=== PATIENT | male | born 1965 | race Caucasian/White ===

== ENCOUNTER 2018-03-31 23:00 | Emergency (ER) | payer MEDICAID ==
[~2018-03-31] VITALS: Ht 154.9 cm; Wt 95.0 kg
[2018-03-31 23:35] VITALS: BP 108/67
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
[2018-04-01] MEDS ORDERED: ZIPRASIDONE 20MG CAPSULE PO SCH
[2018-04-01] MEDS ORDERED: ZIPRASIDONE 20MG CAPSULE ONE (00:02)
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
--- NOTE | 2018-04-01 00:57 | NUR ---
PT RESISTANT TO DISCHARGE, PT GIVEN OUTPATIENT RESOURCE INFORMATION, ENCOURAGED TO FOLLOW UP, PT AGITATED WITH STAFF REGARDING DISCHARGE. PT ADMITS HE WAS RECENTLY SEEN AND DC'D FROM [place] FOR THE SAME THING. PT AGAIN EDUCATED ON POC (DC WITH OUTPATIENT FOLLOW UP) PT DEMANDING RN TO CALL N[facility], PT ALSO EDUCATED THAT THEY DOUBTLY HAVE ROOMS AVAILABLE AT THIS TIME, AND THE ERMD HAS CLEARED PT MEDICALLY FOR OUTPATIENT TREATMENT.
--- NOTE | 2018-04-01 01:23 | NUR ---
[facility] PT REQUESTED RN TAXI HIM OVER THERE. PER [facility] PT WILL BE REDIRECTED BACK TO OUR FACILITY OR TO THE [facility] IF SENT TO THEM. PT TO BE TELEPSYCHED AT THIS TIME DUE TO LACK OF RESOURCES FOR PT
--- NOTE | 2018-04-01 02:48 | NUR ---
PT IN ROOM DRAWING, CALM, COOPERATIVE, AWAITING TELEPSYCH CONSULT, MONITOR IN ROOM
--- NOTE | 2018-04-01 03:06 | NUR ---
TELEPSYCH CONSULT IN PROGRESS
--- NOTE | 2018-04-01 03:32 | NUR ---
AWAITING TELEPSYCH TO CALL MD FOR DISPO RECOMMENDATION
--- NOTE | 2018-04-01 03:42 | NUR ---
TELEPSYCH CONSULT RECIEVED VIA FAX, PT CLEARED TO BE DISCHARGED FOR OUTPATIENT FOLLOW UP. PT ANGRY WITH STAFF. PT HAS ALL BELONGINGS HE COME WITH, REFUSING CAB VOUCHER AFTER MULTIPLE ATTEMPTS TO GIVE HIM A SAFE RIDE HOME. PT ALERT AND ORIENTED X4
== END 2018-04-01 03:48 | disposition home or self-care (01) ==
LOC: ED 04-01 03:42
DX: F20.0 Paranoid schizophrenia (principal); F17.200 Nicotine dependence, unspecified, uncomplicated; F10.129 Alcohol abuse with intoxication, unspecified
CPT/HCPCS: 99284

== ENCOUNTER 2018-05-22 04:38 | Emergency (ER) | payer MEDICAID ==
[~2018-05-22] VITALS: Ht 188 cm; Wt 82.0 kg
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
[2018-05-22] MEDS ORDERED: BUPR75TA6 PO (04:56)
[2018-05-22] MEDS ORDERED: FLUO10CA7 PO (04:56)
[2018-05-22] MEDS ORDERED: OLAN2.5T10 PO (04:56)
--- NOTE | 2018-05-22 05:07 | NUR ---
DISCUSSED NEED FOR URINE SAMPLE AND PROVIDED PT WITH URINE CUP, PT STATED HE IS ABLE TO PROVIDED URINE SAMPLE AT THIS TIME.
[2018-05-22 05:17] LABS: BASOPHILS # (AUTO) 0.06 x10^3/uL (0-0.1); BASOPHILS % (AUTO) 1 % (0-1); EOSINOPHILS # (AUTO) 0.69 x10^3/uL (0-0.4); EOSINOPHILS % (AUTO) 9 % (1-7); LYMPHOCYTES # (AUTO) 2.84 x10^3/uL (1-3.4); LYMPHOCYTES % (AUTO) 36 % (22-44); MD NO; MEAN CORPUSCULAR HEMOGLOBIN 33.5 pg (27.5-34.5); MEAN CORPUSCULAR HGB CONC 34.3 g/dL (33.2-36.2); MEAN CORPUSCULAR VOLUME 97.7 fL (81-97); MEAN PLATELET VOLUME 8.3 fL (7.4-10.4); MONOCYTES # (AUTO) 0.85 x10^3/uL (0.2-0.8); MONOCYTES % (AUTO) 11 % (2-9); NEUTROPHILS # (AUTO) 3.43 x10^3/uL (1.8-6.8); NEUTROPHILS % (AUTO) 44 % (42-75); PLATELET COUNT 250 x10^3/uL (130-400); RED CELL DISTRIBUTION WIDTH 13.5 % (9.4-14.8)
[2018-05-22 05:29] LABS: ALBUMIN 3.4 g/dL (3.4-5.0); ANION GAP 6 mmol/L (5-15); CALCIUM 8.3 mg/dL (8.5-10.1); CHLORIDE 110 mmol/L (98-107); CREATININE 0.87 mg/dL (0.7-1.3); SALICYLATE LEVEL 2.6 mg/dL (2.8-20.0)
[2018-05-22 05:36] LABS: ACETAMINOPHEN < 2 mcg/mL (10-30)
--- NOTE | 2018-05-22 06:03 | NUR ---
PT RESTING WITH EYES CLOSED, STATED HE IS UNABLE TO PROVIDE URINE SAMPLE NOW, ROOM REMAINS SECURED, SITTER AT DOORWAY FOR CONTINOUS MONITORING.
--- NOTE | 2018-05-22 06:20 | NUR ---
URINE SAMPLE TAKEN TO LAB
[2018-05-22 06:39] LABS: AMPHETAMINE SCREEN, URINE Positive (Negative); BARBITURATE SCREEN, URINE Negative (Negative); BENZODIAZEPINE SCREEN, URINE Negative (Negative); CANNABINOID SCREEN, URINE Positive (Negative); COCAINE SCREEN, URINE Negative (Negative); METHADONE SCREEN, URINE Negative (Negative); OPIATE SCREEN, URINE Negative (Negative)
--- NOTE | 2018-05-22 07:04 | NUR ---
REPORT GIVEN TO JOSE SINCLAIR
--- NOTE | 2018-05-22 07:22 | NUR ---
BEDSIDE REPORT FROM VICTOR HUGO RN, PT SLEEPING IN BED WITH SITTER AT BEDSIDE. AWAITING [facility] EVAL.
--- NOTE | 2018-05-22 08:22 | NUR ---
[facility] called they will dispatch someone now.
[2018-05-22 09:05] VITALS: BP 136/72
--- NOTE | 2018-05-22 10:04 | NUR ---
PT DISCHARGED TO [facility], ALL BELONGINGS RETURNED TO PT, MEDICATIONS HELD IN PHARMACY RETURNED TO PATIENT. TAXI VOUCHER GIVEN. NO ADDITIONAL QUESTIONS FROM PT.
== END 2018-05-22 10:09 | disposition home or self-care (01) ==
LOC: ED 07:02
DX: R45.851 Suicidal ideations (principal); F32.9 Major depressive disorder, single episode, unspecified; F20.9 Schizophrenia, unspecified; F43.10 Post-traumatic stress disorder, unspecified; Z59.0 Homelessness; Z91.14 Patient's other noncompliance with medication regimen
CPT/HCPCS: 36415; 80048; 80307; 80329; 82040; 85025; 99284; G0480

== ENCOUNTER 2018-07-17 04:01 | Emergency (ER) | payer MEDICAID ==
[~2018-07-17] VITALS: Ht 177.8 cm; Wt 68.0 kg
[~2018-07-17 04:01] MED LIST: BUPR75TA6 PO; FLUO10CA7 PO; OLAN2.5T10 PO
[2018-07-17 04:09] VITALS: BP 128/73
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
[2018-07-17 04:34] LABS: BASOPHILS # (AUTO) 0.05 x10^3/uL (0-0.1); BASOPHILS % (AUTO) 1 % (0-1); EOSINOPHILS # (AUTO) 0.82 x10^3/uL (0-0.4); EOSINOPHILS % (AUTO) 9 % (1-7); LYMPHOCYTES # (AUTO) 3.25 x10^3/uL (1-3.4); LYMPHOCYTES % (AUTO) 34 % (22-44); MD NO; MEAN CORPUSCULAR HEMOGLOBIN 33.7 pg (27.5-34.5); MEAN CORPUSCULAR VOLUME 99.2 fL (81-97); MEAN PLATELET VOLUME 7.5 fL (7.4-10.4); MONOCYTES # (AUTO) 0.79 x10^3/uL (0.2-0.8); MONOCYTES % (AUTO) 8 % (2-9); NEUTROPHILS # (AUTO) 4.76 x10^3/uL (1.8-6.8); NEUTROPHILS % (AUTO) 49 % (42-75); PLATELET COUNT 304 x10^3/uL (130-400); RED BLOOD COUNT 3.93 x10^6/uL (4.38-5.82); RED CELL DISTRIBUTION WIDTH 14.7 % (9.4-14.8)
[2018-07-17 04:46] LABS: ALANINE AMINOTRANSFERASE 20 U/L (12-78); ALBUMIN 3.8 g/dL (3.4-5.0); ANION GAP 6 mmol/L (5-15); CALCIUM 8.8 mg/dL (8.5-10.1); CHLORIDE 105 mmol/L (98-107); CREATININE 1.22 mg/dL (0.7-1.3)
[2018-07-17 04:53] LABS: ALKALINE PHOSPHATASE 94 U/L (45-117); BILIRUBIN,TOTAL 0.4 mg/dL (0.2-1.0); TOTAL PROTEIN 7.1 g/dL (6.4-8.2)
[2018-07-17 04:54] LABS: ACETAMINOPHEN < 2 mcg/mL (10-30)
--- NOTE | 2018-07-17 05:15 | NUR ---
PT SLEEPING COMFORTABLY ON GURNEY. RR EVEN AND UNLABORED. NADN.
--- NOTE | 2018-07-17 05:42 | NUR ---
[facility] CALLED, WAITING FOR RESPONSE.
--- NOTE | 2018-07-17 05:46 | NUR ---
PT ADMITTED TO THIS RN DURING TRIAGE THAT THE [facility] WAS FULL, [place] WOULDNT ACCEPT HIM BECAUSE THEY WERE FULL, AND SO HE CALLED 911. PT ASKED FOR BLANKETS AND FOR THE LIGHTS TO BE TURNED OUT DURING REPORT W/ [facility].
--- NOTE | 2018-07-17 05:59 | NUR ---
PT STATES STILL UNABLE TO PROVIDE UA.
--- NOTE | 2018-07-17 06:20 | NUR ---
THIS RN SPOKE TO [facility]. INFORMED OF REFUSAL BY PT TO PROVIDE UA. I REP STATES SHE WILL CALL BACK. I REP STATES IT IS AN INTEGRAL PIECE OF INFORMATION BEFORE THEY CAN SEND SOMEONE TO ASSESS PT.
--- NOTE | 2018-07-17 06:58 | NUR ---
PT REPORT TO KARISSA GARCIA.
--- NOTE | 2018-07-17 07:01 | NUR ---
RECEIVED REPORT FROM RADHA BROWN RN. PT SLEEPING ON GURNEY. PER RADHA RN PT REFUSED TO PROVIDE UA SAMPLE. SITTER AWARE FOR NEED FOR UA. URINAL PROVIDED TO SITTER WHEN PT NEEDS TO USE RESTROOM.
--- NOTE | 2018-07-17 07:14 | NUR ---
PT REFUSING TO PROVIDE UA SAMPLE.
[2018-07-17 07:40] LABS: AMPHETAMINE SCREEN, URINE Positive (Negative); BARBITURATE SCREEN, URINE Negative (Negative); BENZODIAZEPINE SCREEN, URINE Negative (Negative); CANNABINOID SCREEN, URINE Positive (Negative); COCAINE SCREEN, URINE Negative (Negative); METHADONE SCREEN, URINE Negative (Negative); OPIATE SCREEN, URINE Negative (Negative)
--- NOTE | 2018-07-17 08:30 | NUR ---
PT PROVIDED W/ SI BREAKFAST MEAL TRAY. PT RESTING ON [place]. AILEEN. SITTER REMAINS AT BEDSIDE. ROOM REMAINS SECURE.
--- NOTE | 2018-07-17 09:56 | NUR ---
[facility] AT BEDSIDE.
--- NOTE | 2018-07-17 10:41 | NUR ---
PT ESCORTED OFF THE PREMISES BY SECURITY. ALL PERSONAL BELONGINGS BOTH IN LOCKER AND SECURITY RETURNED.
== END 2018-07-17 10:44 | disposition home or self-care (01) ==
LOC: ED 04:58
DX: F20.9 Schizophrenia, unspecified (principal); R45.851 Suicidal ideations
CPT/HCPCS: 36415; 80053; 80307; 80329; 85025; 99284; G0480

== ENCOUNTER 2018-07-19 23:22 | Emergency (ER) | payer MEDICAID ==
[~2018-07-19] VITALS: Ht 188 cm; Wt 82.0 kg
--- NOTE | 2018-07-19 23:30 | NUR ---
SUJATHA. REPORT RECEIVED FROM EMS. PT WAS FOUND AT PARKING GARAGE AT [facility]. PT IS SI. PT TRIED TO JUMP OFF FROM PARKING GARAGE. NO HI. PT'S AOX4. RESPS EVEN AND UNLABORED.
--- NOTE | 2018-07-20 | NUR ---
CALLED [facility] TO COME SEE THE PT
--- NOTE | 2018-07-20 00:19 | NUR ---
BELONGINGS PUT INTO 2 BAGS AND PUT INTO LOCKER. ROOM SECURE.
[2018-07-20 00:33] LABS: MD YES; MEAN CORPUSCULAR HEMOGLOBIN 33.7 pg (27.5-34.5); MEAN CORPUSCULAR HGB CONC 33.9 g/dL (33.2-36.2); MEAN CORPUSCULAR VOLUME 99.3 fL (81-97); MEAN PLATELET VOLUME 7.7 fL (7.4-10.4); PLATELET COUNT 298 x10^3/uL (130-400); RED BLOOD COUNT 3.76 x10^6/uL (4.38-5.82); RED CELL DISTRIBUTION WIDTH 14.6 % (9.4-14.8)
[2018-07-20 00:37] LABS: ALANINE AMINOTRANSFERASE 18 U/L (12-78); ALBUMIN 3.5 g/dL (3.4-5.0); ANION GAP 8 mmol/L (5-15); CALCIUM 8.1 mg/dL (8.5-10.1); CHLORIDE 111 mmol/L (98-107); CREATININE 1.04 mg/dL (0.7-1.3); SALICYLATE LEVEL 2.7 mg/dL (2.8-20.0)
[2018-07-20 00:39] LABS: ACETAMINOPHEN < 2 mcg/mL (10-30); ALKALINE PHOSPHATASE 88 U/L (45-117); BILIRUBIN,TOTAL < 0.1 mg/dL (0.2-1.0); TOTAL PROTEIN 6.8 g/dL (6.4-8.2)
[2018-07-20 00:42] LABS: BASOPHILS # (AUTO) 0.04 x10^3/uL (0-0.1); BASOPHILS % (AUTO) 1 % (0-1); EOSINOPHILS # (AUTO) 0.69 x10^3/uL (0-0.4); EOSINOPHILS % (AUTO) 9 % (1-7); LYMPHOCYTES # (AUTO) 3.26 x10^3/uL (1-3.4); LYMPHOCYTES % (AUTO) 44 % (22-44); MONOCYTES # (AUTO) 0.53 x10^3/uL (0.2-0.8); MONOCYTES % (AUTO) 7 % (2-9); NEUTROPHILS # (AUTO) 2.94 x10^3/uL (1.8-6.8); NEUTROPHILS % (AUTO) 39 % (42-75)
--- NOTE | 2018-07-20 00:44 | NUR ---
PT SLEEPING IN GURNEY. RESPS EVEN AND UNLABORED. URINAL AT BEDSIDE.
[2018-07-20 01:41] LABS: EOS#(MANUAL) 0.53 x10^3/uL (0.0-0.4); EOS% (MANUAL) 7 % (1-7); LYMPH#(MANUAL) 3.12 x10^3/uL (1-3.4); LYMPHS% (MANUAL) 41 % (22-44); MONOS#(MANUAL) 0.76 x10^3/uL (0.3-2.7); MONOS% (MANUAL) 10 % (2-9); SEG#(MANUAL) 3.19 x10^3/uL (1.8-6.8); SEGS% (MANUAL) 42 % (42-75)
[2018-07-20 01:42] LABS: <PLATELET ESTIMATE> ADEQUATE; <PLT MORPHOLOGY> NORMAL PLT MORPH; <RBC MORPHOLOGY> NORMAL
--- NOTE | 2018-07-20 01:48 | NUR ---
PT SLEEPING IN GURNEY STILL. RESPS EVEN AND UNLABORED. PT IS NOT ABLE TO PROVIDE URINE SAMPLE AT THIS TIME.
--- NOTE | 2018-07-20 02:39 | NUR ---
Break RN: Breathalyzer 0.05, [facility] police booking officer at bedside.
[2018-07-20 03:15] VITALS: BP 107/64
--- NOTE | 2018-07-20 03:18 | NUR ---
THIS RN TOOK VS FOR PT. THEN, PT AGITATED AND VERBALLY AGGRESSIVE TOWARD THIS RN. DC UP. SECURITY PAGED.
--- NOTE | 2018-07-20 03:28 | NUR ---
PT GIVEN DC INSTRUCTIONS. PT'S AOX4. RESPS EVEN AND UNLABORED. PT AMB TO DC WITH SECURITY. NO ACUTE DISTRESS AT DC.
== END 2018-07-20 03:29 | disposition home or self-care (01) ==
LOC: ED 07-20 01:14
DX: R45.851 Suicidal ideations (principal); Z72.9 Problem related to lifestyle, unspecified; F10.10 Alcohol abuse, uncomplicated; F20.9 Schizophrenia, unspecified
CPT/HCPCS: 36415; 80053; 80307; 80329; 85025; 99284; G0480

== ENCOUNTER 2018-07-30 15:00 | Inpatient (IN) | payer MEDICAID ==
[~2018-07-30] VITALS: Ht 175.3 cm; Wt 94.4 kg
--- NOTE | 2018-07-30 15:18 | NUR ---
ALL PT'S BELONGINGS STORED IN LOCKER, 1 BAG, PT IN GOWN, REQUESTED TO PROVIDE URINE SAMPLE, SITTER AT DOORWAY, AWAITING MD EVALUATION.
[2018-07-30] MEDS ORDERED: LORazepam 1MG TABLET ONE (15:25)
[2018-07-30] MEDS ORDERED: LORazepam 1MG TABLET PO ONE (15:30)
[2018-07-30 15:41] LABS: BASOPHILS # (AUTO) 0.04 x10^3/uL (0-0.1); BASOPHILS % (AUTO) 1 % (0-1); EOSINOPHILS # (AUTO) 0.37 x10^3/uL (0-0.4); EOSINOPHILS % (AUTO) 5 % (1-7); LYMPHOCYTES # (AUTO) 2.37 x10^3/uL (1-3.4); LYMPHOCYTES % (AUTO) 33 % (22-44); MD NO; MEAN CORPUSCULAR HEMOGLOBIN 32.8 pg (27.5-34.5); MEAN CORPUSCULAR HGB CONC 33.3 g/dL (33.2-36.2); MEAN CORPUSCULAR VOLUME 98.3 fL (81-97); MEAN PLATELET VOLUME 8.1 fL (7.4-10.4); MONOCYTES # (AUTO) 0.82 x10^3/uL (0.2-0.8); MONOCYTES % (AUTO) 11 % (2-9); NEUTROPHILS # (AUTO) 3.68 x10^3/uL (1.8-6.8); NEUTROPHILS % (AUTO) 51 % (42-75); PLATELET COUNT 339 x10^3/uL (130-400); RED BLOOD COUNT 4.21 x10^6/uL (4.38-5.82); RED CELL DISTRIBUTION WIDTH 14.8 % (9.4-14.8)
[2018-07-30 15:51] LABS: ALANINE AMINOTRANSFERASE 22 U/L (12-78); ANION GAP 6 mmol/L (5-15); CALCIUM 9.2 mg/dL (8.5-10.1); CHLORIDE 108 mmol/L (98-107); CREATININE 1.22 mg/dL (0.7-1.3); SALICYLATE LEVEL 1.8 mg/dL (2.8-20.0)
[2018-07-30 15:53] LABS: ALKALINE PHOSPHATASE 93 U/L (45-117); BILIRUBIN,TOTAL 0.4 mg/dL (0.2-1.0); TOTAL PROTEIN 7.4 g/dL (6.4-8.2)
[2018-07-30 15:54] LABS: ACETAMINOPHEN < 2 mcg/mL (10-30)
--- NOTE | 2018-07-30 16:00 | NUR ---
PT IN BED, NAD, REQUESTING FOOD, RN TO ORDER TRAY, SITTER AT DOORWAY, AWAITING DISPO, WCTM.
[2018-07-30 16:42] LABS: AMPHETAMINE SCREEN, URINE Positive (Negative); BARBITURATE SCREEN, URINE Negative (Negative); BENZODIAZEPINE SCREEN, URINE Positive (Negative); CANNABINOID SCREEN, URINE Positive (Negative); COCAINE SCREEN, URINE Negative (Negative); METHADONE SCREEN, URINE Negative (Negative); OPIATE SCREEN, URINE Negative (Negative)
--- NOTE | 2018-07-30 17:00 | NUR ---
PT IN BED, NAD, MEAL TRAY DELIVERED, SITTER AT DOORWAY, AWAITING PSYCH EVAL, WCTM.
--- NOTE | 2018-07-30 17:25 | NUR ---
[facility] CALLED FOR ASSESSMENT. LEFT MESSAGE
[2018-07-30] MEDS ORDERED: KETOROLAC 30 MG/1 ML IV PRN (17:30)
[2018-07-30] MEDS ORDERED: MORPHINE SULFATE 4 MG/ML, 1ML IVPush PRN (17:30)
[2018-07-30] MEDS ORDERED: LORazepam 2 MG/ML, 1ML IV PRN ×4 (17:30)
[2018-07-30] MEDS ORDERED: LORazepam 1MG TABLET PO PRN (17:30)
[2018-07-30] MEDS ORDERED: LABETALOL 5MG/ML, 20ML IV PRN (17:30)
[2018-07-30] MEDS ORDERED: FOLIC ACID 5 MG/ML IM ONE (17:30)
[2018-07-30] MEDS ORDERED: GABAPENTIN 300 MG CAPSULE PO PRN (17:30)
--- NOTE | 2018-07-30 17:39 | NUR ---
PER [facility] PATIENT HAS MEDICAID EXPANSION AND THEY NO LONGER DO ASSESSMENTS. CALLED [facility] ON 2N TO FIND OUT WHAT ELSE NEEDS TO BE DONE.
--- NOTE | 2018-07-30 17:59 | NUR ---
PT IN BED, NAD, DINNER TRAY ORDERED, SITTER AT DOORWAY, AWAITING PSYCH EVAL/ADMIT, WCTM.
--- NOTE | 2018-07-30 18:45 | NUR ---
MEDS ORDERED FROM PHARMACY
[2018-07-30 18:53] LABS: HEMOGLOBIN A1C 5.2 % (4.2-6.3)
[2018-07-30] MEDS ORDERED: THIAMINE 200 MG, FOLIC ACID 1 MG in DEXTROSE 5% 50 ML IVPB ONE (19:05)
[2018-07-30] MEDS ORDERED: NICOTINE 14MG/24 HR PATCH.TD24 ONE (19:15)
[2018-07-30] MEDS ORDERED: ENOXAPARIN 40 MG/0.4 ML ONE (19:15)
[2018-07-30] MEDS ORDERED: CHLORDIAZEPOXIDE 25 MG CAPSULE ONE (19:16)
[2018-07-30] MEDS: CHLORDIAZEPOXIDE 25 MG CAPSULE PO SCH (19:18)
[2018-07-30] MEDS: ENOXAPARIN 40 MG/0.4 ML SQ SCH (19:19)
[2018-07-30] MEDS: NICOTINE 14MG/24 HR PATCH.TD24 TD SCH (19:20)
[2018-07-30 19:47] VITALS: BP 107/72
[2018-07-30] MEDS: BACLOFEN 10 MG TABLET PO SCH (21:25)
[2018-07-30] MEDS: LORazepam 0.5MG TABLET PO PRN (21:26)
[2018-07-30] MEDS: ATORVASTATIN 40 MG TABLET PO SCH (21:26)
[2018-07-30 22:17] VITALS: BP 102/63
[2018-07-30] MEDS ORDERED: OMNIPAQUE 350 MG/ML, 100ML BOTTLE ONE (22:53)
[2018-07-31] VITALS (7 sets, daily range): BP systolic 92–118; BP diastolic 56–73
[2018-07-31] MEDS: CHLORDIAZEPOXIDE 25 MG CAPSULE PO SCH ×4 (00:25→20:01)
[2018-07-31] MEDS: LORazepam 0.5MG TABLET PO PRN ×2 (00:36→09:53)
[2018-07-31 06:24] LABS: CHOL/HDL RATIO 3.5; LDL/HDL RATIO 1.9 (0.5-3.0)
[2018-07-31 07:55] LABS: ALBUMIN 3.4 g/dL (3.4-5.0); ANION GAP 7 mmol/L (5-15); CALCIUM 8.8 mg/dL (8.5-10.1); CHLORIDE 109 mmol/L (98-107); CREATININE 1.37 mg/dL (0.7-1.3)
--- NOTE | 2018-07-31 09:37 | NUR ---
COMPACTING MACHINE OPERATOR/TENDER recommends chopped solids and thin liquid diet with adherence to the following strategies: HOB at 90* or up to chair for meals Alternate liquids and solids Double swallow [place] swallow sign posted in patients room Addendum: 07/31/18 at 0937 by Maria Guadaluep ZUÑIGA Amended: Links added.
[2018-07-31] MEDS: ASPIRIN 81 MG TABLET CHEW PO/NG SCH (09:53)
[2018-07-31] MEDS: MULTIVITAMINS/MINERALS TABLET PO SCH (09:53)
[2018-07-31] MEDS: BACLOFEN 10 MG TABLET PO SCH ×2 (09:53→19:59)
[2018-07-31] MEDS: THIAMINE 100MG TABLET PO SCH (09:53)
[2018-07-31] MEDS: FOLIC ACID 1 MG TABLET PO SCH (09:53)
[2018-07-31] MEDS: SODIUM CHLORIDE 0.9% 1,000 ML IV SCH ×2 (13:12→19:58)
[2018-07-31] MEDS: LORazepam 1MG TABLET PO PRN ×3 (14:29→22:56)
[2018-07-31] MEDS: NICOTINE 14MG/24 HR PATCH.TD24 TD SCH (18:34)
[2018-07-31] MEDS: ENOXAPARIN 40 MG/0.4 ML SQ SCH (18:34)
[2018-07-31] MEDS: ATORVASTATIN 40 MG TABLET PO SCH (19:59)
[2018-08-01 02:34] VITALS: BP 103/69
[2018-08-01] MEDS: LORazepam 0.5MG TABLET PO PRN (06:37)
[2018-08-01 06:59] VITALS: BP 103/68
[2018-08-01 07:23] LABS: ALBUMIN 3.2 g/dL (3.4-5.0); ANION GAP 7 mmol/L (5-15); CALCIUM 8.4 mg/dL (8.5-10.1); CHLORIDE 113 mmol/L (98-107)
[2018-08-01 07:24] LABS: CREATININE 1.23 mg/dL (0.7-1.3)
[2018-08-01 08:05] LABS: MEAN CORPUSCULAR VOLUME 99.3 fL (81-97); RED BLOOD COUNT 3.82 x10^6/uL (4.38-5.82)
[2018-08-01 08:06] LABS: BASOPHILS # (AUTO) 0.04 x10^3/uL (0-0.1); BASOPHILS % (AUTO) 1 % (0-1); EOSINOPHILS # (AUTO) 0.57 x10^3/uL (0-0.4); EOSINOPHILS % (AUTO) 10 % (1-7); LYMPHOCYTES # (AUTO) 2.64 x10^3/uL (1-3.4); LYMPHOCYTES % (AUTO) 44 % (22-44); MD NO; MEAN CORPUSCULAR HEMOGLOBIN 33.4 pg (27.5-34.5); MEAN CORPUSCULAR HGB CONC 33.6 g/dL (33.2-36.2); MEAN PLATELET VOLUME 9.1 fL (7.4-10.4); MONOCYTES # (AUTO) 0.63 x10^3/uL (0.2-0.8); MONOCYTES % (AUTO) 10 % (2-9); NEUTROPHILS # (AUTO) 2.11 x10^3/uL (1.8-6.8); NEUTROPHILS % (AUTO) 35 % (42-75); PLATELET COUNT 297 x10^3/uL (130-400); RED CELL DISTRIBUTION WIDTH 14.7 % (9.4-14.8)
[2018-08-01] MEDS: BACLOFEN 10 MG TABLET PO SCH ×2 (08:59→20:50)
[2018-08-01] MEDS: MULTIVITAMINS/MINERALS TABLET PO SCH (08:59)
[2018-08-01] MEDS: ASPIRIN 81 MG TABLET CHEW PO/NG SCH (08:59)
[2018-08-01] MEDS: SODIUM CHLORIDE 0.9% 1,000 ML IV SCH ×2 (08:59→17:15)
[2018-08-01] MEDS: FOLIC ACID 1 MG TABLET PO SCH (08:59)
[2018-08-01] MEDS: CHLORDIAZEPOXIDE 10 MG CAPSULE PO SCH ×3 (08:59→20:50)
[2018-08-01] MEDS: THIAMINE 100MG TABLET PO SCH (08:59)
[2018-08-01] MEDS: LORazepam 1MG TABLET PO PRN ×2 (12:17→17:14)
[2018-08-01 12:28] VITALS: BP 117/75
[2018-08-01] MEDS: NICOTINE 21 MG/24 HR PATCH.TD24 TD SCH (17:14)
[2018-08-01] MEDS: ENOXAPARIN 40 MG/0.4 ML SQ SCH (17:15)
[2018-08-01 17:19] VITALS: BP 117/78
[2018-08-01 20:38] VITALS: BP 112/76
[2018-08-01] MEDS: ATORVASTATIN 40 MG TABLET PO SCH (20:50)
[2018-08-01] MEDS: OLANZAPINE 5 MG TABLET PO SCH (20:50)
[2018-08-02] MEDS: SODIUM CHLORIDE 0.9% 1,000 ML IV SCH ×3 (01:47→17:55)
[2018-08-02 02:26] VITALS: BP 100/61
[2018-08-02 05:15] LABS: BASOPHILS # (AUTO) 0.04 x10^3/uL (0-0.1); BASOPHILS % (AUTO) 1 % (0-1); EOSINOPHILS # (AUTO) 0.59 x10^3/uL (0-0.4); EOSINOPHILS % (AUTO) 9 % (1-7); LYMPHOCYTES # (AUTO) 2.59 x10^3/uL (1-3.4); LYMPHOCYTES % (AUTO) 38 % (22-44); MD NO; MEAN CORPUSCULAR HEMOGLOBIN 33.3 pg (27.5-34.5); MEAN CORPUSCULAR HGB CONC 33.5 g/dL (33.2-36.2); MEAN CORPUSCULAR VOLUME 99.4 fL (81-97); MONOCYTES # (AUTO) 0.62 x10^3/uL (0.2-0.8); MONOCYTES % (AUTO) 9 % (2-9); NEUTROPHILS # (AUTO) 2.91 x10^3/uL (1.8-6.8); NEUTROPHILS % (AUTO) 43 % (42-75); PLATELET COUNT 290 x10^3/uL (130-400); RED BLOOD COUNT 3.68 x10^6/uL (4.38-5.82); RED CELL DISTRIBUTION WIDTH 14.4 % (9.4-14.8)
[2018-08-02 05:16] LABS: CALCIUM 8.5 mg/dL (8.5-10.1); CHLORIDE 116 mmol/L (98-107)
[2018-08-02 05:24] LABS: ALANINE AMINOTRANSFERASE 16 U/L (12-78); ALBUMIN 2.9 g/dL (3.4-5.0); ALKALINE PHOSPHATASE 67 U/L (45-117); ANION GAP 6 mmol/L (5-15); CREATININE 1.09 mg/dL (0.7-1.3)
[2018-08-02 05:25] LABS: BILIRUBIN,TOTAL < 0.1 mg/dL (0.2-1.0)
[2018-08-02] MEDS: LORazepam 2 MG/ML, 1ML IV PRN (07:28)
[2018-08-02 10:37] VITALS: BP 116/76
[2018-08-02] MEDS: ASPIRIN 81 MG TABLET CHEW PO/NG SCH (10:39)
[2018-08-02] MEDS: FOLIC ACID 1 MG TABLET PO SCH (10:39)
[2018-08-02] MEDS: BACLOFEN 10 MG TABLET PO SCH ×2 (10:39→21:28)
[2018-08-02] MEDS: CHLORDIAZEPOXIDE 10 MG CAPSULE PO SCH ×3 (10:39→21:28)
[2018-08-02] MEDS: NICOTINE 21 MG/24 HR PATCH.TD24 TD SCH (10:39)
[2018-08-02] MEDS: THIAMINE 100MG TABLET PO SCH (10:39)
[2018-08-02] MEDS: FLUOXETINE HCL 20 MG CAPSULE PO SCH (10:39)
[2018-08-02] MEDS: MULTIVITAMINS/MINERALS TABLET PO SCH (10:39)
[2018-08-02 16:00] VITALS: BP 126/74
[2018-08-02] MEDS: ENOXAPARIN 40 MG/0.4 ML SQ SCH (17:55)
[2018-08-02 20:21] VITALS: BP 114/68
[2018-08-02] MEDS: OLANZAPINE 5 MG TABLET PO SCH (21:28)
[2018-08-02] MEDS: ATORVASTATIN 40 MG TABLET PO SCH (21:28)
[2018-08-02] MEDS: LORazepam 1MG TABLET PO PRN (21:56)
[2018-08-03 00:46] VITALS: BP 116/78
[2018-08-03] MEDS: SODIUM CHLORIDE 0.9% 1,000 ML IV SCH ×3 (02:27→21:24)
[2018-08-03 04:19] VITALS: BP 108/66
[2018-08-03] MEDS: NICOTINE 21 MG/24 HR PATCH.TD24 TD SCH (08:37)
[2018-08-03] MEDS: CHLORDIAZEPOXIDE 10 MG CAPSULE PO SCH (08:38)
[2018-08-03] MEDS: MULTIVITAMINS/MINERALS TABLET PO SCH (08:38)
[2018-08-03] MEDS: THIAMINE 100MG TABLET PO SCH (08:38)
[2018-08-03] MEDS: BACLOFEN 10 MG TABLET PO SCH (08:38)
[2018-08-03] MEDS: LORazepam 2 MG/ML, 1ML IV PRN (08:38)
[2018-08-03] MEDS: FLUOXETINE HCL 20 MG CAPSULE PO SCH (08:38)
[2018-08-03] MEDS: ASPIRIN 81 MG TABLET CHEW PO/NG SCH (08:38)
[2018-08-03] MEDS: FOLIC ACID 1 MG TABLET PO SCH (08:47)
[2018-08-03 09:06] LABS: BASOPHILS # (AUTO) 0.04 x10^3/uL (0-0.1); BASOPHILS % (AUTO) 1 % (0-1); EOSINOPHILS # (AUTO) 0.66 x10^3/uL (0-0.4); EOSINOPHILS % (AUTO) 9 % (1-7); LYMPHOCYTES # (AUTO) 2.46 x10^3/uL (1-3.4); LYMPHOCYTES % (AUTO) 33 % (22-44); MD NO; MEAN CORPUSCULAR HEMOGLOBIN 33.7 pg (27.5-34.5); MEAN CORPUSCULAR HGB CONC 34.1 g/dL (33.2-36.2); MEAN CORPUSCULAR VOLUME 98.8 fL (81-97); MEAN PLATELET VOLUME 8.5 fL (7.4-10.4); MONOCYTES # (AUTO) 0.66 x10^3/uL (0.2-0.8); MONOCYTES % (AUTO) 9 % (2-9); NEUTROPHILS # (AUTO) 3.64 x10^3/uL (1.8-6.8); NEUTROPHILS % (AUTO) 49 % (42-75); PLATELET COUNT 296 x10^3/uL (130-400); RED BLOOD COUNT 3.66 x10^6/uL (4.38-5.82); RED CELL DISTRIBUTION WIDTH 14.5 % (9.4-14.8)
[2018-08-03 09:17] LABS: ALANINE AMINOTRANSFERASE 28 U/L (12-78); ANION GAP 4 mmol/L (5-15); CALCIUM 8.2 mg/dL (8.5-10.1); CHLORIDE 116 mmol/L (98-107)
[2018-08-03 09:20] LABS: ALKALINE PHOSPHATASE 68 U/L (45-117); BILIRUBIN,TOTAL 0.2 mg/dL (0.2-1.0); CREATININE 0.94 mg/dL (0.7-1.3); TOTAL PROTEIN 5.9 g/dL (6.4-8.2)
[2018-08-03] MEDS ORDERED: MAGNESIUM SULFATE PMX 2GM/50ML 50 ML IV ONE (10:00)
[2018-08-03 12:00] VITALS: BP 125/77
--- NOTE | 2018-08-03 13:18 | NUR ---
REC SOFT/THIN; swallow precaution sheet posted at bedside Addendum: 08/03/18 at [address] Amended: Links added.
[2018-08-03 16:00] VITALS: BP 119/72
[2018-08-03] MEDS: LORazepam 0.5MG TABLET PO PRN (17:38)
[2018-08-03] MEDS: ENOXAPARIN 40 MG/0.4 ML SQ SCH (17:39)
[2018-08-03 19:16] VITALS: BP 124/76
[2018-08-03] MEDS: ATORVASTATIN 40 MG TABLET PO SCH (21:23)
[2018-08-03] MEDS: OLANZAPINE 5 MG TABLET PO SCH (21:23)
[2018-08-03 23:40] VITALS: BP 119/74
[2018-08-04] MEDS ORDERED: DIPHENHYDRAMINE 50 MG CAPSULE ONE (00:08)
[2018-08-04] MEDS ORDERED: DIPHENHYDRAMINE 50 MG CAPSULE PO PRN (00:30)
[2018-08-04 03:50] VITALS: BP 119/74
[2018-08-04] MEDS: SODIUM CHLORIDE 0.9% 1,000 ML IV SCH (05:06)
[2018-08-04 06:23] VITALS: BP 115/66
[2018-08-04] MEDS: NICOTINE 21 MG/24 HR PATCH.TD24 TD SCH (09:10)
[2018-08-04] MEDS: FLUOXETINE HCL 20 MG CAPSULE PO SCH (09:11)
[2018-08-04] MEDS: FOLIC ACID 1 MG TABLET PO SCH (09:11)
[2018-08-04] MEDS: ASPIRIN 81 MG TABLET CHEW PO/NG SCH (09:11)
[2018-08-04] MEDS: THIAMINE 100MG TABLET PO SCH (09:11)
[2018-08-04] MEDS: MULTIVITAMINS/MINERALS TABLET PO SCH (09:11)
[2018-08-04] MEDS: ENOXAPARIN 40 MG/0.4 ML SQ SCH (17:32)
[2018-08-04 19:16] VITALS: BP 138/91
[2018-08-04] MEDS: ATORVASTATIN 40 MG TABLET PO SCH (20:41)
[2018-08-04] MEDS: OLANZAPINE 5 MG TABLET PO SCH (20:41)
[2018-08-04] MEDS: ACETAMINOPHEN 325 MG TABLET PO PRN (20:54)
[2018-08-04 23:59] VITALS: BP 136/81
[2018-08-05 04:46] VITALS: BP 96/58
[2018-08-05 05:25] LABS: BASOPHILS # (AUTO) 0.05 x10^3/uL (0-0.1); BASOPHILS % (AUTO) 1 % (0-1); EOSINOPHILS # (AUTO) 0.66 x10^3/uL (0-0.4); EOSINOPHILS % (AUTO) 9 % (1-7); LYMPHOCYTES # (AUTO) 2.63 x10^3/uL (1-3.4); LYMPHOCYTES % (AUTO) 36 % (22-44); MD NO; MEAN CORPUSCULAR HEMOGLOBIN 33.1 pg (27.5-34.5); MEAN CORPUSCULAR HGB CONC 33.4 g/dL (33.2-36.2); MEAN CORPUSCULAR VOLUME 99.2 fL (81-97); MEAN PLATELET VOLUME 9.2 fL (7.4-10.4); MONOCYTES # (AUTO) 0.88 x10^3/uL (0.2-0.8); MONOCYTES % (AUTO) 12 % (2-9); NEUTROPHILS # (AUTO) 3.19 x10^3/uL (1.8-6.8); NEUTROPHILS % (AUTO) 43 % (42-75); PLATELET COUNT 304 x10^3/uL (130-400); RED BLOOD COUNT 3.77 x10^6/uL (4.38-5.82); RED CELL DISTRIBUTION WIDTH 14.7 % (9.4-14.8)
[2018-08-05 05:26] LABS: ANION GAP 4 mmol/L (5-15); CALCIUM 8.6 mg/dL (8.5-10.1); CHLORIDE 112 mmol/L (98-107)
[2018-08-05 05:29] LABS: ALANINE AMINOTRANSFERASE 46 U/L (12-78); ALKALINE PHOSPHATASE 67 U/L (45-117); BILIRUBIN,TOTAL 0.2 mg/dL (0.2-1.0); CREATININE 1.13 mg/dL (0.7-1.3); TOTAL PROTEIN 6.2 g/dL (6.4-8.2)
[2018-08-05] MEDS: NICOTINE 21 MG/24 HR PATCH.TD24 TD SCH ×2 (08:35→22:27)
[2018-08-05] MEDS: FOLIC ACID 1 MG TABLET PO SCH (08:36)
[2018-08-05] MEDS: FLUOXETINE HCL 20 MG CAPSULE PO SCH (08:36)
[2018-08-05] MEDS: MULTIVITAMINS/MINERALS TABLET PO SCH (08:36)
[2018-08-05] MEDS: ASPIRIN 81 MG TABLET CHEW PO/NG SCH (08:37)
[2018-08-05] MEDS: THIAMINE 100MG TABLET PO SCH (08:37)
[2018-08-05] MEDS: ACETAMINOPHEN 325 MG TABLET PO PRN (08:46)
[2018-08-05 12:12] VITALS: BP 138/88
[2018-08-05] MEDS: ENOXAPARIN 40 MG/0.4 ML SQ SCH (17:30)
[2018-08-05 18:22] VITALS: BP 113/74
[2018-08-05 21:03] VITALS: BP 126/80
[2018-08-05] MEDS ORDERED: LORazepam 1MG TABLET PO ONE (21:30)
[2018-08-05] MEDS: ATORVASTATIN 40 MG TABLET PO SCH (21:36)
[2018-08-05] MEDS: OLANZAPINE 5 MG TABLET PO SCH (21:36)
[2018-08-06 08:02] VITALS: BP 121/82
[2018-08-06] MEDS: MULTIVITAMIN 1 TABLET PO SCH (08:32)
[2018-08-06] MEDS: FOLIC ACID 1 MG TABLET PO SCH (08:32)
[2018-08-06] MEDS: THIAMINE 100MG TABLET PO SCH (08:32)
[2018-08-06] MEDS: GABAPENTIN 300 MG CAPSULE PO PRN ×2 (08:37→20:57)
[2018-08-06] MEDS: ASPIRIN 81 MG TABLET CHEW PO SCH (10:54)
[2018-08-06 12:14] VITALS: BP 143/86
[2018-08-06] MEDS: ENOXAPARIN 40 MG/0.4 ML SQ SCH (16:50)
[2018-08-06] MEDS: LORazepam 1MG TABLET PO PRN ×2 (17:08→20:58)
[2018-08-06 19:06] VITALS: BP 123/71
[2018-08-06] MEDS: ATORVASTATIN 40 MG TABLET PO SCH (20:57)
[2018-08-06] MEDS: OLANZAPINE 5 MG TABLET PO SCH (20:57)
[2018-08-06] MEDS: NICOTINE 21 MG/24 HR PATCH.TD24 TD SCH (21:01)
[2018-08-06] MEDS: DIPHENHYDRAMINE 50 MG CAPSULE PO PRN (21:06)
[2018-08-07] MEDS: ASPIRIN 81 MG TABLET CHEW PO SCH (07:24)
[2018-08-07 08:00] VITALS: BP 97/63
[2018-08-07] MEDS: MULTIVITAMIN 1 TABLET PO SCH (09:18)
[2018-08-07] MEDS: FOLIC ACID 1 MG TABLET PO SCH (09:18)
[2018-08-07] MEDS: THIAMINE 100MG TABLET PO SCH (09:18)
[2018-08-07] MEDS: GABAPENTIN 300 MG CAPSULE PO PRN ×2 (16:02→21:02)
[2018-08-07] MEDS: LORazepam 1MG TABLET PO PRN ×2 (16:03→21:03)
[2018-08-07] MEDS: ENOXAPARIN 40 MG/0.4 ML SQ SCH (17:09)
[2018-08-07 19:58] VITALS: BP 99/65
[2018-08-07] MEDS: DIPHENHYDRAMINE 50 MG CAPSULE PO PRN (21:02)
[2018-08-07] MEDS: OLANZAPINE 5 MG TABLET PO SCH (21:03)
[2018-08-07] MEDS: ATORVASTATIN 40 MG TABLET PO SCH (21:03)
[2018-08-07] MEDS: NICOTINE 21 MG/24 HR PATCH.TD24 TD SCH (21:06)
[2018-08-08 07:59] VITALS: BP 99/67
[2018-08-08] MEDS: ASPIRIN 81 MG TABLET CHEW PO SCH (08:25)
[2018-08-08] MEDS: THIAMINE 100MG TABLET PO SCH (08:25)
[2018-08-08] MEDS: FOLIC ACID 1 MG TABLET PO SCH (08:25)
[2018-08-08] MEDS: MULTIVITAMIN 1 TABLET PO SCH (08:26)
[2018-08-08] MEDS: GABAPENTIN 300 MG CAPSULE PO PRN ×2 (08:29→20:20)
[2018-08-08] MEDS: ENOXAPARIN 40 MG/0.4 ML SQ SCH (16:57)
[2018-08-08] MEDS: NICOTINE 21 MG/24 HR PATCH.TD24 TD SCH (17:03)
[2018-08-08 19:30] VITALS: BP 99/68
[2018-08-08] MEDS: DIPHENHYDRAMINE 50 MG CAPSULE PO PRN (20:20)
[2018-08-08] MEDS: OLANZAPINE 5 MG TABLET PO SCH (20:21)
[2018-08-08] MEDS: LORazepam 1MG TABLET PO PRN (20:21)
[2018-08-08] MEDS: ATORVASTATIN 40 MG TABLET PO SCH (20:21)
[2018-08-08] MEDS: ACETAMINOPHEN 325 MG TABLET PO PRN (21:14)
[2018-08-09 07:41] VITALS: BP 102/68
[2018-08-09] MEDS: MULTIVITAMIN 1 TABLET PO SCH (07:43)
[2018-08-09] MEDS: ASPIRIN 81 MG TABLET CHEW PO SCH (07:43)
[2018-08-09] MEDS: FOLIC ACID 1 MG TABLET PO SCH (07:43)
[2018-08-09] MEDS: THIAMINE 100MG TABLET PO SCH (07:43)
[2018-08-09] MEDS: GABAPENTIN 300 MG CAPSULE PO PRN ×2 (07:50→17:31)
[2018-08-09] MEDS: LORazepam 1MG TABLET PO PRN ×2 (15:42→20:53)
[2018-08-09] MEDS: ACETAMINOPHEN 325 MG TABLET PO PRN (15:42)
[2018-08-09] MEDS: ENOXAPARIN 40 MG/0.4 ML SQ SCH (17:30)
[2018-08-09 19:54] VITALS: BP 115/75
[2018-08-09] MEDS: DIPHENHYDRAMINE 50 MG CAPSULE PO PRN (20:53)
[2018-08-09] MEDS: ATORVASTATIN 40 MG TABLET PO SCH (20:53)
[2018-08-09] MEDS: OLANZAPINE 5 MG TABLET PO SCH (20:53)
[2018-08-09] MEDS: NICOTINE 21 MG/24 HR PATCH.TD24 TD SCH (22:00)
[2018-08-10] MEDS: ASPIRIN 81 MG TABLET CHEW PO SCH (07:24)
[2018-08-10 08:00] VITALS: BP 95/56
[2018-08-10] MEDS: FOLIC ACID 1 MG TABLET PO SCH (08:08)
[2018-08-10] MEDS: MULTIVITAMIN 1 TABLET PO SCH (08:08)
[2018-08-10] MEDS: THIAMINE 100MG TABLET PO SCH (08:08)
[2018-08-10] MEDS: GABAPENTIN 300 MG CAPSULE PO PRN (08:08)
[2018-08-10 09:11] LABS: CREATININE 1.15 mg/dL (0.7-1.3)
[2018-08-10] MEDS: NICOTINE 21 MG/24 HR PATCH.TD24 TD SCH (13:13)
[2018-08-10] MEDS: ENOXAPARIN 40 MG/0.4 ML SQ SCH (17:05)
[2018-08-10 19:13] VITALS: BP 106/65
[2018-08-10] MEDS: OLANZAPINE 5 MG TABLET PO SCH (20:49)
[2018-08-10] MEDS: ATORVASTATIN 40 MG TABLET PO SCH (20:49)
[2018-08-10] MEDS: DIPHENHYDRAMINE 50 MG CAPSULE PO PRN (20:49)
[2018-08-10] MEDS: LORazepam 1MG TABLET PO PRN (22:20)
[2018-08-11] MEDS: ASPIRIN 81 MG TABLET CHEW PO SCH (06:18)
[2018-08-11 08:00] VITALS: BP 109/75
[2018-08-11] MEDS: FOLIC ACID 1 MG TABLET PO SCH (08:02)
[2018-08-11] MEDS: MULTIVITAMIN 1 TABLET PO SCH (08:02)
[2018-08-11] MEDS: THIAMINE 100MG TABLET PO SCH (08:02)
[2018-08-11] MEDS: NICOTINE 21 MG/24 HR PATCH.TD24 TD SCH (08:21)
[2018-08-11] MEDS: GABAPENTIN 300 MG CAPSULE PO PRN ×2 (16:42→20:10)
[2018-08-11] MEDS: ENOXAPARIN 40 MG/0.4 ML SQ SCH (17:54)
[2018-08-11 19:23] VITALS: BP 109/75
[2018-08-11] MEDS: OLANZAPINE 5 MG TABLET PO SCH (20:09)
[2018-08-11] MEDS: ATORVASTATIN 40 MG TABLET PO SCH (20:10)
[2018-08-11] MEDS: LORazepam 1MG TABLET PO PRN (20:55)
[2018-08-11] MEDS: DIPHENHYDRAMINE 50 MG CAPSULE PO PRN (20:56)
[2018-08-12] MEDS: ASPIRIN 81 MG TABLET CHEW PO SCH (06:04)
[2018-08-12 08:25] VITALS: BP 91/58
[2018-08-12] MEDS: THIAMINE 100MG TABLET PO SCH (08:51)
[2018-08-12] MEDS: MULTIVITAMIN 1 TABLET PO SCH (08:51)
[2018-08-12] MEDS: FOLIC ACID 1 MG TABLET PO SCH (08:51)
[2018-08-12] MEDS: ENOXAPARIN 40 MG/0.4 ML SQ SCH (17:39)
[2018-08-12] MEDS: NICOTINE 21 MG/24 HR PATCH.TD24 TD SCH (17:43)
[2018-08-12 19:26] VITALS: BP 99/64
[2018-08-12] MEDS: ATORVASTATIN 40 MG TABLET PO SCH (19:55)
[2018-08-12] MEDS: LORazepam 1MG TABLET PO PRN (19:55)
[2018-08-12] MEDS: DIPHENHYDRAMINE 50 MG CAPSULE PO PRN (19:56)
[2018-08-12] MEDS: OLANZAPINE 5 MG TABLET PO SCH (19:56)
[2018-08-12] MEDS: GABAPENTIN 300 MG CAPSULE PO PRN (19:56)
[2018-08-13] MEDS: ASPIRIN 81 MG TABLET CHEW PO SCH (06:14)
[2018-08-13 08:00] VITALS: BP 114/73
[2018-08-13] MEDS: THIAMINE 100MG TABLET PO SCH (08:05)
[2018-08-13] MEDS: MULTIVITAMIN 1 TABLET PO SCH (08:05)
[2018-08-13] MEDS: FOLIC ACID 1 MG TABLET PO SCH (08:05)
[2018-08-13] MEDS: ENOXAPARIN 40 MG/0.4 ML SQ SCH (18:03)
[2018-08-13 19:25] VITALS: BP 87/60
[2018-08-13] MEDS: LORazepam 1MG TABLET PO PRN (20:59)
[2018-08-13] MEDS: GABAPENTIN 300 MG CAPSULE PO PRN (20:59)
[2018-08-13] MEDS: ATORVASTATIN 40 MG TABLET PO SCH (20:59)
[2018-08-13] MEDS: NICOTINE 21 MG/24 HR PATCH.TD24 TD SCH (20:59)
[2018-08-13] MEDS: OLANZAPINE 5 MG TABLET PO SCH (20:59)
[2018-08-13] MEDS: DIPHENHYDRAMINE 50 MG CAPSULE PO PRN (20:59)
[2018-08-14] MEDS: FOLIC ACID 1 MG TABLET PO SCH (08:05)
[2018-08-14] MEDS: MULTIVITAMIN 1 TABLET PO SCH (08:05)
[2018-08-14] MEDS: THIAMINE 100MG TABLET PO SCH (08:05)
[2018-08-14] MEDS: ASPIRIN 81 MG TABLET CHEW PO SCH (08:06)
[2018-08-14 08:11] VITALS: BP 99/67
[2018-08-14] MEDS: ENOXAPARIN 40 MG/0.4 ML SQ SCH (17:19)
[2018-08-14 19:21] VITALS: BP 105/72
[2018-08-14] MEDS: NICOTINE 21 MG/24 HR PATCH.TD24 TD SCH ×2 (21:01→22:00)
[2018-08-14] MEDS: DIPHENHYDRAMINE 50 MG CAPSULE PO PRN (21:02)
[2018-08-14] MEDS: ATORVASTATIN 40 MG TABLET PO SCH (21:02)
[2018-08-14] MEDS: OLANZAPINE 5 MG TABLET PO SCH (21:02)
[2018-08-14] MEDS: GABAPENTIN 300 MG CAPSULE PO PRN (21:02)
[2018-08-14] MEDS: LORazepam 1MG TABLET PO PRN (21:02)
[2018-08-15] MEDS: ASPIRIN 81 MG TABLET CHEW PO SCH (05:59)
[2018-08-15 08:20] VITALS: BP 105/76
[2018-08-15] MEDS: THIAMINE 100MG TABLET PO SCH (08:34)
[2018-08-15] MEDS: MULTIVITAMIN 1 TABLET PO SCH (08:34)
[2018-08-15] MEDS: FOLIC ACID 1 MG TABLET PO SCH (08:35)
[2018-08-15] MEDS: NICOTINE 21 MG/24 HR PATCH.TD24 TD SCH ×2 (08:38→09:00)
[2018-08-15] MEDS: GABAPENTIN 300 MG CAPSULE PO PRN (08:39)
[2018-08-15] MEDS ORDERED: NICOTINE 21 MG/24 HR PATCH.TD24 TD ONE (15:00)
[2018-08-15] MEDS: ENOXAPARIN 40 MG/0.4 ML SQ SCH (17:28)
[2018-08-15 19:39] VITALS: BP 102/68
[2018-08-15] MEDS: OLANZAPINE 5 MG TABLET PO SCH (20:13)
[2018-08-15] MEDS: ATORVASTATIN 40 MG TABLET PO SCH (20:14)
[2018-08-15] MEDS: LORazepam 1MG TABLET PO PRN (20:19)
[2018-08-15] MEDS: DIPHENHYDRAMINE 50 MG CAPSULE PO PRN (20:47)
[2018-08-16] MEDS: ASPIRIN 81 MG TABLET CHEW PO SCH (05:02)
[2018-08-16] MEDS: THIAMINE 100MG TABLET PO SCH (08:30)
[2018-08-16] MEDS: MULTIVITAMIN 1 TABLET PO SCH (08:30)
[2018-08-16] MEDS: FOLIC ACID 1 MG TABLET PO SCH (08:30)
[2018-08-16] MEDS: NICOTINE 21 MG/24 HR PATCH.TD24 TD SCH ×2 (08:36→16:42)
[2018-08-16 08:41] VITALS: BP 105/71
[2018-08-16] MEDS: ENOXAPARIN 40 MG/0.4 ML SQ SCH (17:18)
[2018-08-16 19:28] VITALS: BP 100/68
[2018-08-16] MEDS: ATORVASTATIN 40 MG TABLET PO SCH (20:41)
[2018-08-16] MEDS: OLANZAPINE 5 MG TABLET PO SCH (20:42)
[2018-08-16] MEDS: DIPHENHYDRAMINE 50 MG CAPSULE PO PRN (20:42)
[2018-08-16] MEDS: GABAPENTIN 300 MG CAPSULE PO PRN (20:42)
[2018-08-16] MEDS: LORazepam 1MG TABLET PO PRN (20:42)
[2018-08-17] MEDS: GABAPENTIN 300 MG CAPSULE PO PRN ×2 (00:18→20:26)
[2018-08-17] MEDS: ASPIRIN 81 MG TABLET CHEW PO SCH (07:43)
[2018-08-17] MEDS: FOLIC ACID 1 MG TABLET PO SCH (08:33)
[2018-08-17] MEDS: MULTIVITAMIN 1 TABLET PO SCH (08:33)
[2018-08-17] MEDS: THIAMINE 100MG TABLET PO SCH (08:33)
[2018-08-17 08:47] VITALS: BP 107/72
[2018-08-17] MEDS: LORazepam 1MG TABLET PO PRN (16:30)
[2018-08-17] MEDS: NICOTINE 21 MG/24 HR PATCH.TD24 TD SCH (16:31)
[2018-08-17] MEDS: ENOXAPARIN 40 MG/0.4 ML SQ SCH (18:39)
[2018-08-17 19:22] VITALS: BP 94/61
[2018-08-17] MEDS: OLANZAPINE 5 MG TABLET PO SCH (20:26)
[2018-08-17] MEDS: ATORVASTATIN 40 MG TABLET PO SCH (20:26)
[2018-08-17] MEDS: DIPHENHYDRAMINE 50 MG CAPSULE PO PRN (20:26)
[2018-08-18] MEDS: ASPIRIN 81 MG TABLET CHEW PO SCH (07:11)
[2018-08-18 08:57] VITALS: BP 97/66
[2018-08-18] MEDS: FOLIC ACID 1 MG TABLET PO SCH (09:30)
[2018-08-18] MEDS: MULTIVITAMIN 1 TABLET PO SCH (09:30)
[2018-08-18] MEDS: THIAMINE 100MG TABLET PO SCH (09:30)
[2018-08-18] MEDS: ENOXAPARIN 40 MG/0.4 ML SQ SCH (17:51)
[2018-08-18] MEDS: NICOTINE 21 MG/24 HR PATCH.TD24 TD SCH (17:51)
[2018-08-18 19:37] VITALS: BP 108/65
[2018-08-18] MEDS: ATORVASTATIN 40 MG TABLET PO SCH (20:56)
[2018-08-18] MEDS: GABAPENTIN 300 MG CAPSULE PO PRN (20:56)
[2018-08-18] MEDS: OLANZAPINE 5 MG TABLET PO SCH (20:56)
[2018-08-18] MEDS: LORazepam 1MG TABLET PO PRN (20:56)
[2018-08-19] MEDS: ASPIRIN 81 MG TABLET CHEW PO SCH (07:27)
[2018-08-19] MEDS: THIAMINE 100MG TABLET PO SCH (07:53)
[2018-08-19] MEDS: MULTIVITAMIN 1 TABLET PO SCH (07:53)
[2018-08-19] MEDS: FOLIC ACID 1 MG TABLET PO SCH (07:54)
[2018-08-19 08:00] VITALS: BP 105/70
[2018-08-19] MEDS: NICOTINE 21 MG/24 HR PATCH.TD24 TD SCH (16:49)
[2018-08-19] MEDS: ENOXAPARIN 40 MG/0.4 ML SQ SCH (16:50)
[2018-08-19 18:59] VITALS: BP 98/61
[2018-08-19] MEDS: ATORVASTATIN 40 MG TABLET PO SCH (20:27)
[2018-08-19] MEDS: OLANZAPINE 5 MG TABLET PO SCH (20:27)
[2018-08-19] MEDS: GABAPENTIN 300 MG CAPSULE PO PRN (20:27)
[2018-08-19] MEDS: DIPHENHYDRAMINE 50 MG CAPSULE PO PRN (20:28)
[2018-08-20] MEDS: THIAMINE 100MG TABLET PO SCH (07:53)
[2018-08-20] MEDS: FOLIC ACID 1 MG TABLET PO SCH (07:53)
[2018-08-20] MEDS: MULTIVITAMIN 1 TABLET PO SCH (07:53)
[2018-08-20] MEDS: ASPIRIN 81 MG TABLET CHEW PO SCH (07:53)
[2018-08-20] MEDS: ACETAMINOPHEN 325 MG TABLET PO PRN ×2 (07:58→18:28)
[2018-08-20 08:08] VITALS: BP 111/76
[2018-08-20] MEDS: NICOTINE 21 MG/24 HR PATCH.TD24 TD SCH (17:00)
[2018-08-20] MEDS: ENOXAPARIN 40 MG/0.4 ML SQ SCH (17:33)
[2018-08-20 19:29] VITALS: BP 92/67
[2018-08-20] MEDS: ATORVASTATIN 40 MG TABLET PO SCH (20:39)
[2018-08-20] MEDS: OLANZAPINE 5 MG TABLET PO SCH (20:40)
[2018-08-20] MEDS: DIPHENHYDRAMINE 50 MG CAPSULE PO PRN (22:04)
[2018-08-20] MEDS: LORazepam 1MG TABLET PO PRN (22:09)
[2018-08-21] MEDS: ASPIRIN 81 MG TABLET CHEW PO SCH (05:28)
[2018-08-21 06:11] LABS: CREATININE 1.17 mg/dL (0.7-1.3)
[2018-08-21] MEDS: FOLIC ACID 1 MG TABLET PO SCH (07:59)
[2018-08-21] MEDS: MULTIVITAMIN 1 TABLET PO SCH (07:59)
[2018-08-21] MEDS: THIAMINE 100MG TABLET PO SCH (07:59)
[2018-08-21 08:19] VITALS: BP 120/75
[2018-08-21] MEDS: NICOTINE 21 MG/24 HR PATCH.TD24 TD SCH (17:25)
[2018-08-21] MEDS: ENOXAPARIN 40 MG/0.4 ML SQ SCH (17:25)
[2018-08-21] MEDS ORDERED: ASPI-515 PO (18:06)
[2018-08-21] MEDS ORDERED: ATOR40TA78 PO (18:06)
[2018-08-21] MEDS ORDERED: OLAN5TAB9 PO (18:06)
[2018-08-21] MEDS ORDERED: HYDR25TA11 PO (18:06)
[2018-08-21] MEDS ORDERED: FOLI-17 PO (18:06)
[2018-08-21] MEDS ORDERED: THIA100T67 PO (18:06)
[2018-08-21 19:22] VITALS: BP 99/65
== END 2018-08-21 19:42 | DRG 69 ==
LOC: ED 16:55 → EDIP 16:56 → ED 17:17 → 4WST 19:52 → 4EST 07-31 05:21 → UNDODISIN 08-05 17:50 → 2N 08-05 18:21
PROVIDERS: ADMIT Hospitalist; ATTEND Hospitalist
DX: G45.9 Transient cerebral ischemic attack, unspecified (principal); N17.0 Acute kidney failure with tubular necrosis; F10.239 Alcohol dependence with withdrawal, unspecified; R45.851 Suicidal ideations; I50.30 Unspecified diastolic (congestive) heart failure; D64.9 Anemia, unspecified; F10.229 Alcohol dependence with intoxication, unspecified; F17.200 Nicotine dependence, unspecified, uncomplicated; F20.9 Schizophrenia, unspecified; I11.0 Hypertensive heart disease with heart failure; I25.2 Old myocardial infarction; I44.1 Atrioventricular block, second degree; M21.372 Foot drop, left foot; Z63.8 Other specified problems related to primary support group; Z79.82 Long term (current) use of aspirin; Z79.899 Other long term (current) drug therapy; Z86.73 Personal history of transient ischemic attack (TIA), and cerebral infarction without residual deficits; F12.10 Cannabis abuse, uncomplicated
CPT/HCPCS: 36415; 70496; 70498; 70551; 80048; 80053; 80061; 80307; 80329; 82040; 82565; 82607; 82962; 83036; 83735; 84100; 84443; 85025; 87806; 93005; 93306; 93880; G0378; J1650; J3411; Q9967; G0475; G0480; J2060; J3475; J7030; Q0177

== ENCOUNTER 2018-11-06 22:14 | Emergency (ER) | payer MEDICAID ==
[~2018-11-06] VITALS: Ht 188 cm; Wt 81.7 kg
[2018-11-06 22:16] VITALS: BP 103/74
== END 2018-11-06 23:03 | disposition home or self-care (01) ==
LOC: ED 22:57
DX: K02.9 Dental caries, unspecified (principal); F32.9 Major depressive disorder, single episode, unspecified; F20.9 Schizophrenia, unspecified; I25.2 Old myocardial infarction; Z72.9 Problem related to lifestyle, unspecified; Z86.73 Personal history of transient ischemic attack (TIA), and cerebral infarction without residual deficits
CPT/HCPCS: 99283

== ENCOUNTER 2019-11-20 16:20 | Emergency (ER) | payer MEDICAID ==
[~2019-11-20] VITALS: Ht 182.9 cm; Wt 85.0 kg
[~2019-11-20 16:20] MED LIST changes: +ASPI-515 PO; +ATOR40TA78 PO; +FLUO10CA14 PO; -FLUO10CA7 PO; +FOLI-17 PO; +HYDR-826 PO; +OLAN5TAB9 PO; +THIA100T67 PO
[2019-11-20 17:01] VITALS: BP 112/73
[2019-11-20 17:43] LABS: AMPHETAMINE SCREEN, URINE Positive (Negative); BARBITURATE SCREEN, URINE Negative (Negative); BENZODIAZEPINE SCREEN, URINE Negative (Negative); CANNABINOID SCREEN, URINE Positive (Negative); COCAINE SCREEN, URINE Negative (Negative); METHADONE SCREEN, URINE Negative (Negative); OPIATE SCREEN, URINE Negative (Negative)
[2019-11-20 17:50] LABS: BASOPHILS # (AUTO) 0.02 x10^3/uL (0-0.1); BASOPHILS % (AUTO) 0 % (0-1); EOSINOPHILS # (AUTO) 0.52 x10^3/uL (0-0.4); EOSINOPHILS % (AUTO) 7 % (1-7); LYMPHOCYTES # (AUTO) 2.36 x10^3/uL (1-3.4); LYMPHOCYTES % (AUTO) 29 % (22-44); MD NO; MEAN CORPUSCULAR HEMOGLOBIN 34.9 pg (27.5-34.5); MEAN CORPUSCULAR HGB CONC 33.2 g/dL (33.2-36.2); MEAN CORPUSCULAR VOLUME 105.1 fL (81-97); MEAN PLATELET VOLUME 8.5 fL (7.4-10.4); MONOCYTES # (AUTO) 0.57 x10^3/uL (0.2-0.8); MONOCYTES % (AUTO) 7 % (2-9); NEUTROPHILS # (AUTO) 4.58 x10^3/uL (1.8-6.8); NEUTROPHILS % (AUTO) 57 % (42-75); PLATELET COUNT 294 x10^3/uL (130-400); RED BLOOD COUNT 3.77 x10^6/uL (4.38-5.82); RED CELL DISTRIBUTION WIDTH 13.6 % (9.4-14.8)
[2019-11-20 18:02] LABS: ALBUMIN 3.7 g/dL (3.4-5.0); ANION GAP 6 mmol/L (5-15); CALCIUM 8.4 mg/dL (8.5-10.1); CHLORIDE 111 mmol/L (98-107); CREATININE 1.06 mg/dL (0.7-1.3)
[2019-11-20 18:03] LABS: SALICYLATE LEVEL 3.4 mg/dL (2.8-20.0)
--- NOTE | 2019-11-20 18:46 | NUR ---
REPORT RECEIEVED FROM JOSE TOUSSAINT. PT RESTING IN [facility], RESPIRATIONS EVEN AND NONLABORED. SITTER IN HALLWAY WITHIN LINE OF SIGHT, ROOM SECURED.
--- NOTE | 2019-11-20 20:06 | NUR ---
MENTAL HEALTH COSTUME MAKER IN ROOM AT THIS TIME.
== END 2019-11-20 21:15 | disposition home or self-care (01) ==
LOC: ED 19:54
DX: F10.129 Alcohol abuse with intoxication, unspecified (principal); F15.129 Other stimulant abuse with intoxication, unspecified; F17.200 Nicotine dependence, unspecified, uncomplicated; M25.552 Pain in left hip; R45.851 Suicidal ideations; I25.2 Old myocardial infarction; Z86.73 Personal history of transient ischemic attack (TIA), and cerebral infarction without residual deficits; Y90.0 Blood alcohol level of less than 20 mg/100 ml
CPT/HCPCS: 36415; 80048; 80307; 82040; 85025; 99284

== ENCOUNTER 2020-01-13 | Emergency (ER) | payer MEDICAID ==
[~2020-01-13] VITALS: Ht 188 cm; Wt 87.2 kg
--- NOTE | 2020-01-13 00:07 | NUR ---
Patient BIB ambulance c/o paranoia. Patient states, "the mexicans are after me. It is worse since the election started." Patient has a hx of schizophrenia and should be on meds. Patient has not been on meds x1 year. Patient is also ETOH abuse. He states he usually drinks (3) 24 oz beers per day. Today he has only had one and smoked marijuana with it. Patient is in NAD. Respirations even and unlabored.
--- NOTE | 2020-01-13 00:13 | NUR ---
Report given to JOSE Jerez.
--- NOTE | 2020-01-13 00:30 | NUR ---
BIBA. A&o x4, answering questions appropriately. States hx of paranoid schizophrenia, unable to get meds x1 year d/t homelessness/financial constraints. Pt states increased auditory hallucinations with voices encouraging him to jump off parking garage. States hx of SI with attempts made in the past d/t auditory hallucinations. Pt also admits to daily drinking and occasional marijuana and meth use. States hx of ETOH withdrawal. Denies chest pain. Denies SOB. Denies abd pain/N/V/D. Safety door in place, secondary door unable to be utilized in order to utilize tele/O2 monitoring, provider aware. Pt's belongings (pants x2, shirt, shoes) placed in one pt belonging bag, placed in psych belongings locker. Safety watch initiated. Ambulating independently, steady gait. PA to bedside for eval. Bed low, side rails up, call light within reach.
--- NOTE | 2020-01-13 00:39 | NUR ---
[facility] cannot accept patient, not appropriate insurance coverage.
[2020-01-13 01:01] LABS: BASOPHILS % (AUTO) 1 % (0-1); EOSINOPHILS % (AUTO) 8 % (1-7); LYMPHOCYTES % (AUTO) 34 % (22-44); MEAN CORPUSCULAR HEMOGLOBIN 34.4 pg (27.5-34.5); MEAN CORPUSCULAR HGB CONC 33.7 g/dL (33.2-36.2); MONOCYTES % (AUTO) 11 % (2-9); NEUTROPHILS % (AUTO) 45 % (42-75); PLATELET COUNT 295 x10^3/uL (130-400); RED BLOOD COUNT 3.75 x10^6/uL (4.38-5.82); RED CELL DISTRIBUTION WIDTH 13.1 % (9.4-14.8)
[2020-01-13 01:06] LABS: ALANINE AMINOTRANSFERASE 19 U/L (12-78); ALBUMIN 3.6 g/dL (3.4-5.0); ANION GAP 6 mmol/L (5-15); CALCIUM 8.6 mg/dL (8.5-10.1); CHLORIDE 109 mmol/L (98-107); CREATININE 1.07 mg/dL (0.7-1.3); SALICYLATE LEVEL 3.9 mg/dL (2.8-20.0)
[2020-01-13 01:09] LABS: ALKALINE PHOSPHATASE 86 U/L (45-117); BILIRUBIN,TOTAL 0.3 mg/dL (0.2-1.0); TOTAL PROTEIN 6.9 g/dL (6.4-8.2)
[2020-01-13 01:23] LABS: MD SCAN
--- NOTE | 2020-01-13 02:36 | NUR ---
TP- FAXED PACKET TO [facility]
--- NOTE | 2020-01-13 02:54 | NUR ---
Provided pt with sandwich. States increased agitation and auditory hallucinations. Provider aware. Safety watch remains in place
--- NOTE | 2020-01-13 02:54 | NUR ---
Spoke with Tyree Buckley who is requesting UDS. Patient unable to provide urine at this time but is aware.
[2020-01-13] MEDS ORDERED: ZIPRASIDONE 20 MG INJ IM ONE ×2 (03:28→03:30)
--- NOTE | 2020-01-13 03:29 | NUR ---
Toya from [facility] accepting at [phone].
--- NOTE | 2020-01-13 03:54 | NUR ---
Report given to RN at [facility]. Plan for 529 arrival pending UDS. Pt aware we are awaiting UA
[2020-01-13 04:50] VITALS: BP 138/80
--- NOTE | 2020-01-13 06:17 | NUR ---
Tx to [place] via [facility]. Report given to Kiley GARCIA at [place] and [facility] transport staff. Pt ambulatory, steady gait. Refuses d/c VS. F/u care and suicide prevention discussed with pt, refuses most of this RN's teaching.
[2020-01-13 06:22] LABS: AMPHETAMINE SCREEN, URINE Positive (Negative); BARBITURATE SCREEN, URINE Negative (Negative); BENZODIAZEPINE SCREEN, URINE Negative (Negative); CANNABINOID SCREEN, URINE Negative (Negative); COCAINE SCREEN, URINE Negative (Negative); METHADONE SCREEN, URINE Negative (Negative); OPIATE SCREEN, URINE Negative (Negative)
== END 2020-01-13 06:18 ==
LOC: ED 01:51
DX: F20.0 Paranoid schizophrenia (principal); R45.851 Suicidal ideations; I25.2 Old myocardial infarction
CPT/HCPCS: 36415; 80053; 80307; 85025; 99285

== ENCOUNTER 2020-01-26 14:46 | Emergency (ER) | payer MEDICAID ==
[~2020-01-26] VITALS: Ht 188 cm; Wt 82.0 kg
[~2020-01-26 14:46] MED LIST changes: -FLUO10CA14 PO; +FLUO10CA15 PO
[2020-01-26 15:20] LABS: BASOPHILS % (AUTO) 1 % (0-1); EOSINOPHILS % (AUTO) 7 % (1-7); LYMPHOCYTES % (AUTO) 27 % (22-44); MEAN PLATELET VOLUME 8.4 fL (7.4-10.4); MONOCYTES % (AUTO) 12 % (2-9); NEUTROPHILS % (AUTO) 53 % (42-75); PLATELET COUNT 309 x10^3/uL (130-400); RED BLOOD COUNT 3.74 x10^6/uL (4.38-5.82)
[2020-01-26 15:22] LABS: MD NO
[2020-01-26 15:29] LABS: ALBUMIN 3.8 g/dL (3.4-5.0); ANION GAP 6 mmol/L (5-15); CALCIUM 8.6 mg/dL (8.5-10.1); CHLORIDE 111 mmol/L (98-107); SALICYLATE LEVEL 2.1 mg/dL (2.8-20.0)
[2020-01-26 15:40] LABS: ALANINE AMINOTRANSFERASE 20 U/L (12-78); ALKALINE PHOSPHATASE 107 U/L (45-117); BILIRUBIN,TOTAL 0.7 mg/dL (0.2-1.0); TOTAL PROTEIN 7.3 g/dL (6.4-8.2)
[2020-01-26 15:40] LABS: AMPHETAMINE SCREEN, URINE Positive (Negative); BARBITURATE SCREEN, URINE Negative (Negative); BENZODIAZEPINE SCREEN, URINE Positive (Negative); CANNABINOID SCREEN, URINE Positive (Negative); COCAINE SCREEN, URINE Negative (Negative); METHADONE SCREEN, URINE Negative (Negative); OPIATE SCREEN, URINE Negative (Negative)
--- NOTE | 2020-01-26 16:02 | NUR ---
PT SUPINE ON GURNEY WITH EYES CLOSED. NAD, VSS. PT DENIES ANY NEEDS AT THIS TIME. CONTINUOUS PULSE OX IN PLACE. CALL LIGHT AND PERSONAL BELONGINGS WITHIN REACH. WILL CONTINUE TO MONITOR.
--- NOTE | 2020-01-26 16:42 | NUR ---
ATTEMPTED TO AMBULATE PATIENT FOR D/C. PT STOOD WITH USE OF PERSONAL CANE/WALKING STICK. PT REFUSED FWW. PT STATES "I CANT DO IT, I CANT FEEL MY FEET. ITS FROM STANDING IN THE COLD WATER FOR SO LONG". PT PURPOSFULLY TREMULOUS AND UNWILLING TO AMBULATE MORE THAN ONE STEP. NOTIFIED.
--- NOTE | 2020-01-26 17:51 | NUR ---
PT AMBULATED WITH ALLERGY NURSE WITH THE USE OF A FRONTWHEEL WALKER. pT AMBULATED STEADILY WITHOUT SIGNS OF WEAKNESS. PT REPEATEDLY STATES "MY FEET FEEL ASLEEP, ITS SO HARD TO WALK".
--- NOTE | 2020-01-26 18:02 | NUR ---
PT SUPINE ON GURNEY WITH EYES CLOSED AND TV ON. NAD, VSS. PT GIVEN CRACKERS PER REQUEST. AWAITING D/C. PT DENIES ANY ADDITIONAL NEEDS AT THIS TIME. WILL CONTINUE TO MONITOR.
--- NOTE | 2020-01-26 18:56 | NUR ---
BEDSIDE REPORT GIVEN TO SARAH GARCIA
[2020-01-26 19:28] VITALS: BP 108/72
--- NOTE | 2020-01-26 20:00 | NUR ---
PT VSS. AMBULATORY. GIVEN WALKER FOR SAFE DISCHARGE. GIVEN SOCKS TO KEEP FEET WARM. NO COMPLAINTS. PT VERBALIZED UNDERSTANDING OF DISCHARGE INSTRUCTIONS.
== END 2020-01-26 20:15 | disposition home or self-care (01) ==
LOC: ED 19:04
DX: F12.20 Cannabis dependence, uncomplicated (principal); F15.20 Other stimulant dependence, uncomplicated; I25.2 Old myocardial infarction; R53.1 Weakness
CPT/HCPCS: 36415; 80053; 80307; 84443; 85025; 93005; 99284

== ENCOUNTER 2020-02-06 18:16 | Inpatient (IN) | payer MEDICAID ==
[~2020-02-06] VITALS: Ht 188 cm; Wt 76.0 kg
[2020-02-06] MEDS ORDERED: KETAMINE 10 MG/ML, 20ML ONE (18:48)
[2020-02-06] MEDS ORDERED: KETAMINE 100 MG/ML, 5ML IV ONE ×2 (19:00→20:30)
[2020-02-06] MEDS ORDERED: FLUMAZENIL 0.1 MG/1 ML, 5ML ONE (19:01)
[2020-02-06] MEDS ORDERED: MIDAZOLAM 1 MG/ML, 2ML ONE (19:02)
[2020-02-06] MEDS ORDERED: NALOXONE 1 MG/ML, 2ML ONE (19:12)
[2020-02-06] MEDS ORDERED: MIDAZOLAM 1 MG/ML, 5ML IVPush ONE (19:30)
--- NOTE | 2020-02-06 19:50 | NUR ---
PT A&O4. RAMBLING AT BASELINE. NO C/O PAIN AT THIS TIME.
[2020-02-06] MEDS ORDERED: MORPHINE SULFATE 4 MG/ML, 1ML ONE ×2 (20:25→21:47)
[2020-02-06] MEDS ORDERED: MIDAZOLAM 1 MG/ML, 2ML IVPush ONE (20:30)
[2020-02-06] MEDS ORDERED: MORPHINE SULFATE 4 MG/ML, 1ML IVPush ONE ×2 (20:30→22:00)
[2020-02-06 20:49] LABS: BASOPHILS % (AUTO) 1 % (0-1); EOSINOPHILS % (AUTO) 4 % (1-7); LYMPHOCYTES % (AUTO) 21 % (22-44); MEAN CORPUSCULAR HGB CONC 33.5 g/dL (33.2-36.2); MEAN PLATELET VOLUME 8.3 fL (7.4-10.4); MONOCYTES % (AUTO) 8 % (2-9); NEUTROPHILS % (AUTO) 67 % (42-75); PLATELET COUNT 307 x10^3/uL (130-400); RED BLOOD COUNT 3.84 x10^6/uL (4.38-5.82); RED CELL DISTRIBUTION WIDTH 13.2 % (9.4-14.8)
[2020-02-06 20:56] LABS: ALBUMIN 3.5 g/dL (3.4-5.0); ANION GAP 6 mmol/L (5-15); CALCIUM 8.8 mg/dL (8.5-10.1); CHLORIDE 109 mmol/L (98-107)
[2020-02-06 21:20] LABS: MD NO
[2020-02-06 21:33] LABS: INTERNATIONAL NORMALIZED RATIO 0.97 (0.93-1.1); PROTHROMBIN TIME 10.3 Seconds (9.6-11.5)
--- NOTE | 2020-02-06 21:48 | NUR ---
ATTEMPTED ekg but patient refused.
[2020-02-06] MEDS ORDERED: POTASSIUM CHLORIDE 20 MEQ, MAGNESIUM SULFATE 2 GM, THIAMINE 200 MG, MVI ADULT 10 ML, FO... IV SCH (23:00)
[2020-02-06] MEDS ORDERED: ONDANSETRON 2MG/ML, 2ML IVPush PRN (23:00)
[2020-02-06] MEDS ORDERED: LABETALOL 5MG/ML, 20ML IVPush PRN (23:00)
[2020-02-06 23:15] VITALS: BP 146/74
[2020-02-06] MEDS: NICOTINE 14MG/24 HR PATCH.TD24 TD SCH (23:56)
[2020-02-06] MEDS: DIAZEPAM 5 MG/ML, 2ML IV PRN (23:56)
[2020-02-06] MEDS: HYDROmorphone 2 MG/ML, 1ML IVPush PRN (23:56)
[2020-02-07 02:19] VITALS: BP 114/72
[2020-02-07] MEDS: HYDROmorphone 2 MG/ML, 1ML IVPush PRN ×3 (04:05→11:57)
[2020-02-07 05:05] LABS: AMPHETAMINE SCREEN, URINE Positive (Negative); BARBITURATE SCREEN, URINE Negative (Negative); BENZODIAZEPINE SCREEN, URINE Positive (Negative); CANNABINOID SCREEN, URINE Negative (Negative); COCAINE SCREEN, URINE Negative (Negative); METHADONE SCREEN, URINE Negative (Negative); OPIATE SCREEN, URINE Positive (Negative)
[2020-02-07] MEDS: DIAZEPAM 5 MG/ML, 2ML IV PRN (10:43)
[2020-02-07] MEDS: ACETAMINOPHEN 325 MG TABLET PO PRN (10:43)
[2020-02-07] MEDS ORDERED: POTASSIUM CHLORIDE 20 MEQ, MAGNESIUM SULFATE 2 GM, THIAMINE 200 MG, MVI ADULT 10 ML, FO... IV SCH (12:30)
[2020-02-07] MEDS ORDERED: LORazepam 2 MG/ML, 1ML IV PRN ×5 (13:00)
[2020-02-07] MEDS ORDERED: LORazepam 1MG TABLET PO PRN ×3 (13:00)
[2020-02-07] MEDS ORDERED: THIAMINE 200 MG in DEXTROSE 5% 50 ML IVPB ONE (13:00)
[2020-02-07] MEDS: CHLORDIAZEPOXIDE 25 MG CAPSULE PO SCH ×2 (13:00→18:54)
[2020-02-07 13:29] VITALS: BP 132/84
[2020-02-07] MEDS ORDERED: THIAMINE 100MG TABLET PO ONE (13:30)
[2020-02-07] MEDS ORDERED: BUPIVACAINE/PF 0.5% ONE (13:37)
[2020-02-07] MEDS ORDERED: MIDAZOLAM 1 MG/ML, 2ML ONE (13:47)
[2020-02-07] MEDS ORDERED: FENTANYL PF 250 MCG/5ML ONE (13:47)
[2020-02-07] MEDS ORDERED: SUCCINYLCHOLINE 20 MG/ML, 10ML ONE (14:04)
[2020-02-07] MEDS ORDERED: DEXAMETHASONE 4 MG/ML, 1ML ONE (14:04)
[2020-02-07] MEDS ORDERED: ONDANSETRON 2MG/ML, 2ML ONE (14:04)
[2020-02-07] MEDS ORDERED: CEFAZOLIN 1,000 MG ONE (14:04)
[2020-02-07] MEDS ORDERED: PROPOFOL 10 MG/ML, 20ML ONE (14:04)
[2020-02-07] MEDS ORDERED: PHENYLEPHRINE 10 MG/ML ONE (14:04)
[2020-02-07] MEDS ORDERED: KETOROLAC 30 MG/1 ML IVPush PRN (15:30)
[2020-02-07] MEDS ORDERED: hydrALAzine 20 MG/ML, 1ML IV PRN (15:30)
[2020-02-07] MEDS ORDERED: MEPERIDINE/PF 25MG/0.5ML IVPush PRN (15:30)
[2020-02-07] MEDS ORDERED: PROMETHAZINE 25 MG/ML, 1ML IVPush PRN (15:30)
[2020-02-07] MEDS ORDERED: FENTANYL PF 100 MCG/2ML IV PRN (15:30)
[2020-02-07] MEDS ORDERED: DIPHENHYDRAMINE 50 MG/ML, 1ML IVPush PRN (15:30)
[2020-02-07] MEDS ORDERED: METOCLOPRAMIDE 5 MG/ML, 2ML IVPush PRN (15:30)
[2020-02-07] MEDS ORDERED: LABETALOL 5MG/ML, 20ML IV PRN (15:30)
[2020-02-07] MEDS ORDERED: OXYcodone 5 MG/5 ML ORAL.SOL UDC PO PRN (15:30)
[2020-02-07] MEDS ORDERED: DIAZEPAM 5 MG/ML, 2ML IVPush PRN (15:30)
[2020-02-07] MEDS ORDERED: HYDROmorphone 1 MG/ML, 1ML INJ IVPush PRN (15:30)
[2020-02-07] MEDS ORDERED: ONDANSETRON 2MG/ML, 2ML IVPush PRN (15:30)
[2020-02-07] MEDS ORDERED: ACETAMINOPHEN 325 MG TABLET PO PRN (15:30)
[2020-02-07] MEDS ORDERED: MEPERIDINE/PF 25MG/ML,1ML ONE (15:49)
[2020-02-07] MEDS ORDERED: FENTANYL PF 100 MCG/2ML ONE (15:49)
[2020-02-07] MEDS ORDERED: OXYcodone 5 MG/5 ML ORAL.SOL UDC ONE (16:12)
[2020-02-07 17:00] VITALS: BP 133/94
[2020-02-07] MEDS ORDERED: THIAMINE 100MG TABLET ONE (18:53)
[2020-02-07 20:19] VITALS: BP 110/78
[2020-02-07] MEDS: CEFAZOLIN 2,000 MG in SODIUM CHLORIDE 0.9% 50 ML IV SCH (22:33)
[2020-02-07] MEDS: NICOTINE 14MG/24 HR PATCH.TD24 TD SCH (22:33)
[2020-02-07] MEDS: HYDROcodone/APAP 10/325 MG TABLET PO PRN (22:47)
[2020-02-07 23:39] VITALS: BP 122/76
[2020-02-08 00:10] VITALS: BP 122/76
[2020-02-08] MEDS: POTASSIUM CHLORIDE 20 MEQ, MAGNESIUM SULFATE 2 GM, THIAMINE 200 MG, MVI ADULT 10 ML, FO... IV SCH (00:18)
[2020-02-08] MEDS: CHLORDIAZEPOXIDE 25 MG CAPSULE PO SCH ×4 (01:06→19:54)
[2020-02-08] MEDS: MORPHINE SULFATE 4 MG/ML, 1ML IVPush PRN ×7 (02:52→19:26)
[2020-02-08] MEDS: ACETAMINOPHEN 325 MG TABLET PO PRN (03:52)
[2020-02-08 04:35] VITALS: BP 117/77
[2020-02-08] MEDS: HYDROcodone/APAP 10/325 MG TABLET PO PRN ×2 (05:19→13:05)
[2020-02-08] MEDS: CEFAZOLIN 2,000 MG in SODIUM CHLORIDE 0.9% 50 ML IV SCH ×3 (06:23→23:21)
[2020-02-08 07:00] VITALS: BP 108/66
[2020-02-08 14:28] VITALS: BP 127/93
[2020-02-08] MEDS: NICOTINE 14MG/24 HR PATCH.TD24 TD SCH (19:44)
[2020-02-08] MEDS: ASPIRIN 325 MG TABLET PO SCH (19:54)
[2020-02-08] MEDS: OLANZAPINE 5 MG TABLET PO SCH (19:54)
[2020-02-08] MEDS: LORazepam 1MG TABLET PO PRN (19:54)
[2020-02-08] MEDS: ATORVASTATIN 40 MG TABLET PO SCH (19:54)
[2020-02-09] MEDS: POTASSIUM CHLORIDE 20 MEQ, MAGNESIUM SULFATE 2 GM, THIAMINE 200 MG, MVI ADULT 10 ML, FO... IV SCH ×2 (00:05→23:52)
[2020-02-09] MEDS: CHLORDIAZEPOXIDE 25 MG CAPSULE PO SCH ×2 (00:58→06:28)
[2020-02-09 01:03] VITALS: BP 135/75
[2020-02-09 06:05] LABS: BASOPHILS % (AUTO) 1 % (0-1); EOSINOPHILS % (AUTO) 2 % (1-7); LYMPHOCYTES % (AUTO) 28 % (22-44); MEAN CORPUSCULAR HEMOGLOBIN 34.1 pg (27.5-34.5); MEAN CORPUSCULAR HGB CONC 33.2 g/dL (33.2-36.2); MEAN PLATELET VOLUME 8.6 fL (7.4-10.4); MONOCYTES % (AUTO) 15 % (2-9); NEUTROPHILS % (AUTO) 54 % (42-75); PLATELET COUNT 287 x10^3/uL (130-400); RED BLOOD COUNT 3.41 x10^6/uL (4.38-5.82); RED CELL DISTRIBUTION WIDTH 13.1 % (9.4-14.8)
[2020-02-09 06:10] LABS: ANION GAP 2 mmol/L (5-15); CALCIUM 8.4 mg/dL (8.5-10.1); CHLORIDE 110 mmol/L (98-107); CREATININE 1.03 mg/dL (0.7-1.3)
[2020-02-09 06:12] LABS: MD NO
[2020-02-09] MEDS: HYDROcodone/APAP 10/325 MG TABLET PO PRN ×2 (06:29→15:49)
[2020-02-09 07:39] VITALS: BP 101/67
[2020-02-09] MEDS: FOLIC ACID 1 MG TABLET PO SCH (09:25)
[2020-02-09] MEDS: THIAMINE 100MG TABLET PO SCH (09:25)
[2020-02-09] MEDS: MORPHINE SULFATE 4 MG/ML, 1ML IVPush PRN (09:26)
[2020-02-09] MEDS: LORazepam 0.5MG TABLET PO PRN ×3 (09:26→21:57)
[2020-02-09] MEDS: ASPIRIN 325 MG TABLET PO SCH ×2 (09:26→21:57)
[2020-02-09 12:35] VITALS: BP 101/69
[2020-02-09] MEDS ORDERED: POLYETHYLENE GLYCOL 17 GM PACKET PO PRN (18:30)
[2020-02-09] MEDS: ATORVASTATIN 40 MG TABLET PO SCH (21:57)
[2020-02-09] MEDS: OLANZAPINE 5 MG TABLET PO SCH (21:58)
[2020-02-09] MEDS: NICOTINE 14MG/24 HR PATCH.TD24 TD SCH (21:58)
[2020-02-09] MEDS: DOCUSATE 100 MG CAPSULE PO SCH (21:58)
[2020-02-09 22:02] VITALS: BP 106/68
[2020-02-10 04:30] VITALS: BP 113/74
[2020-02-10] MEDS: LORazepam 0.5MG TABLET PO PRN (04:36)
[2020-02-10] MEDS: HYDROcodone/APAP 10/325 MG TABLET PO PRN ×3 (04:36→16:44)
[2020-02-10 05:58] LABS: BASOPHILS % (AUTO) 1 % (0-1); EOSINOPHILS % (AUTO) 6 % (1-7); LYMPHOCYTES % (AUTO) 29 % (22-44); MEAN CORPUSCULAR HEMOGLOBIN 34.2 pg (27.5-34.5); MEAN CORPUSCULAR HGB CONC 33.5 g/dL (33.2-36.2); MEAN PLATELET VOLUME 8.5 fL (7.4-10.4); MONOCYTES % (AUTO) 16 % (2-9); NEUTROPHILS % (AUTO) 49 % (42-75); PLATELET COUNT 313 x10^3/uL (130-400); RED BLOOD COUNT 3.55 x10^6/uL (4.38-5.82); RED CELL DISTRIBUTION WIDTH 12.8 % (9.4-14.8)
[2020-02-10 06:17] LABS: MD NO
[2020-02-10 06:19] VITALS: BP 104/63
[2020-02-10] MEDS: MORPHINE SULFATE 4 MG/ML, 1ML IVPush PRN ×2 (06:29→10:38)
[2020-02-10 06:43] LABS: ANION GAP 5 mmol/L (5-15); CALCIUM 8.6 mg/dL (8.5-10.1); CHLORIDE 108 mmol/L (98-107); CREATININE 0.88 mg/dL (0.7-1.3)
[2020-02-10] MEDS: FOLIC ACID 1 MG TABLET PO SCH ×2 (09:00→09:46)
[2020-02-10] MEDS: THIAMINE 100MG TABLET PO SCH (09:00)
[2020-02-10 09:24] VITALS: BP 107/74
[2020-02-10] MEDS: ASPIRIN 325 MG TABLET PO SCH ×2 (09:46→21:45)
[2020-02-10] MEDS: K-PHOS NEUTRAL 250MG TAB PO SCH ×3 (09:46→21:46)
[2020-02-10] MEDS: DOCUSATE 100 MG CAPSULE PO SCH ×2 (09:46→21:45)
[2020-02-10] MEDS: MULTIVITAMIN 1 TABLET PO SCH (09:46)
[2020-02-10] MEDS: LORazepam 1MG TABLET PO PRN (10:39)
[2020-02-10] MEDS ORDERED: MORPHINE SULFATE 4 MG/ML, 1ML IVPush PRN (12:30)
[2020-02-10 13:07] VITALS: BP 112/71
[2020-02-10 15:31] VITALS: BP 122/78
[2020-02-10 20:00] VITALS: BP 106/72
[2020-02-10] MEDS: OLANZAPINE 5 MG TABLET PO SCH (21:45)
[2020-02-10] MEDS: NICOTINE 14MG/24 HR PATCH.TD24 TD SCH (21:46)
[2020-02-10] MEDS: ATORVASTATIN 40 MG TABLET PO SCH (21:46)
[2020-02-11 02:38] VITALS: BP 108/66
[2020-02-11] MEDS: HYDROcodone/APAP 10/325 MG TABLET PO PRN ×4 (06:14→21:36)
[2020-02-11 07:41] VITALS: BP 118/71
[2020-02-11] MEDS: FOLIC ACID 1 MG TABLET PO SCH ×2 (09:00→12:24)
[2020-02-11] MEDS: DOCUSATE 100 MG CAPSULE PO SCH ×2 (12:24→21:37)
[2020-02-11] MEDS: ASPIRIN 325 MG TABLET PO SCH ×2 (12:25→21:37)
[2020-02-11] MEDS: MULTIVITAMIN 1 TABLET PO SCH (12:25)
[2020-02-11] MEDS: THIAMINE 100MG TABLET PO SCH (12:25)
[2020-02-11 15:59] VITALS: BP 108/75
[2020-02-11 19:33] VITALS: BP 113/9
[2020-02-11] MEDS: ATORVASTATIN 40 MG TABLET PO SCH (21:37)
[2020-02-11] MEDS: OLANZAPINE 5 MG TABLET PO SCH (21:37)
[2020-02-11] MEDS: NICOTINE 14MG/24 HR PATCH.TD24 TD SCH (21:38)
[2020-02-12 04:01] VITALS: BP 109/71
[2020-02-12] MEDS: HYDROcodone/APAP 10/325 MG TABLET PO PRN ×5 (04:19→19:44)
[2020-02-12 07:53] VITALS: BP 109/71
[2020-02-12] MEDS: FOLIC ACID 1 MG TABLET PO SCH ×2 (09:00→10:20)
[2020-02-12] MEDS: THIAMINE 100MG TABLET PO SCH (10:20)
[2020-02-12] MEDS: ASPIRIN 325 MG TABLET PO SCH ×2 (10:20→19:45)
[2020-02-12] MEDS: DOCUSATE 100 MG CAPSULE PO SCH ×2 (10:21→19:44)
[2020-02-12] MEDS: MULTIVITAMIN 1 TABLET PO SCH (10:21)
[2020-02-12 12:38] VITALS: BP 96/60
[2020-02-12] MEDS ORDERED: HALOPERIDOL 5 MG/ML IM ONE (19:00)
[2020-02-12] MEDS ORDERED: HALOPERIDOL 5 MG/ML ONE (19:00)
[2020-02-12] MEDS: ATORVASTATIN 40 MG TABLET PO SCH (19:44)
[2020-02-12] MEDS: NICOTINE 14MG/24 HR PATCH.TD24 TD SCH (19:45)
[2020-02-12] MEDS: OLANZAPINE 5 MG TABLET PO SCH (19:45)
[2020-02-12 21:24] VITALS: BP 114/77
[2020-02-13] MEDS: HYDROcodone/APAP 10/325 MG TABLET PO PRN ×5 (00:01→20:20)
[2020-02-13 02:55] VITALS: BP 106/74
[2020-02-13 08:14] VITALS: BP 106/72
[2020-02-13] MEDS: ASPIRIN 325 MG TABLET PO SCH ×2 (09:00→20:20)
[2020-02-13] MEDS: FOLIC ACID 1 MG TABLET PO SCH ×2 (09:00)
[2020-02-13] MEDS: MULTIVITAMIN 1 TABLET PO SCH (09:00)
[2020-02-13] MEDS: DOCUSATE 100 MG CAPSULE PO SCH ×2 (09:00→20:20)
[2020-02-13] MEDS: THIAMINE 100MG TABLET PO SCH (09:00)
[2020-02-13 14:36] VITALS: BP 97/69
[2020-02-13 20:15] VITALS: BP 104/69
[2020-02-13] MEDS: NICOTINE 14MG/24 HR PATCH.TD24 TD SCH (20:20)
[2020-02-13] MEDS: OLANZAPINE 5 MG TABLET PO SCH (20:20)
[2020-02-13] MEDS: ATORVASTATIN 40 MG TABLET PO SCH (20:20)
[2020-02-13] MEDS ORDERED: HALOPERIDOL 5 MG/ML ONE (20:32)
[2020-02-13] MEDS ORDERED: HALOPERIDOL 5 MG/ML IM ONE (21:00)
[2020-02-14 10:59] VITALS: BP 100/65
[2020-02-14] MEDS: DOCUSATE 100 MG CAPSULE PO SCH ×2 (11:17→20:04)
[2020-02-14] MEDS: MULTIVITAMIN 1 TABLET PO SCH (11:17)
[2020-02-14] MEDS: FOLIC ACID 1 MG TABLET PO SCH ×2 (11:18)
[2020-02-14] MEDS: ASPIRIN 325 MG TABLET PO SCH ×2 (11:18→20:03)
[2020-02-14] MEDS: HYDROcodone/APAP 10/325 MG TABLET PO PRN ×4 (11:18→23:47)
[2020-02-14] MEDS: THIAMINE 100MG TABLET PO SCH (11:18)
[2020-02-14 14:17] VITALS: BP 103/70
[2020-02-14 19:22] VITALS: BP 106/69
[2020-02-14] MEDS: OLANZAPINE 5 MG TABLET PO SCH (20:04)
[2020-02-14] MEDS: ATORVASTATIN 40 MG TABLET PO SCH (20:04)
[2020-02-14] MEDS: NICOTINE 14MG/24 HR PATCH.TD24 TD SCH (23:44)
[2020-02-15] MEDS: HYDROcodone/APAP 10/325 MG TABLET PO PRN ×4 (04:55→21:59)
[2020-02-15 07:35] VITALS: BP 95/59
[2020-02-15] MEDS: FOLIC ACID 1 MG TABLET PO SCH ×2 (09:00→09:04)
[2020-02-15] MEDS: THIAMINE 100MG TABLET PO SCH (09:04)
[2020-02-15] MEDS: ASPIRIN 325 MG TABLET PO SCH ×2 (09:04→20:49)
[2020-02-15] MEDS: DOCUSATE 100 MG CAPSULE PO SCH ×2 (09:04→20:49)
[2020-02-15] MEDS: MULTIVITAMIN 1 TABLET PO SCH (09:04)
[2020-02-15 10:15] LABS: BASOPHILS % (AUTO) 1 % (0-1); EOSINOPHILS % (AUTO) 9 % (1-7); LYMPHOCYTES % (AUTO) 30 % (22-44); MEAN CORPUSCULAR HEMOGLOBIN 34.8 pg (27.5-34.5); MEAN CORPUSCULAR HGB CONC 34.3 g/dL (33.2-36.2); MEAN PLATELET VOLUME 8.1 fL (7.4-10.4); MONOCYTES % (AUTO) 13 % (2-9); NEUTROPHILS % (AUTO) 47 % (42-75); PLATELET COUNT 373 x10^3/uL (130-400); RED BLOOD COUNT 3.71 x10^6/uL (4.38-5.82)
[2020-02-15 10:21] LABS: ALBUMIN 3.3 g/dL (3.4-5.0); ANION GAP 8 mmol/L (5-15); CALCIUM 9.1 mg/dL (8.5-10.1); CHLORIDE 107 mmol/L (98-107)
[2020-02-15 10:24] LABS: ALANINE AMINOTRANSFERASE 64 U/L (12-78); ALKALINE PHOSPHATASE 91 U/L (45-117); BILIRUBIN,TOTAL 0.3 mg/dL (0.2-1.0); CREATININE 1.22 mg/dL (0.7-1.3); TOTAL PROTEIN 7.1 g/dL (6.4-8.2)
[2020-02-15 10:32] LABS: MD NO
[2020-02-15 13:50] VITALS: BP 109/75
[2020-02-15 20:14] VITALS: BP 108/72
[2020-02-15] MEDS: ATORVASTATIN 40 MG TABLET PO SCH (20:49)
[2020-02-15] MEDS: OLANZAPINE 5 MG TABLET PO SCH (20:49)
[2020-02-16] MEDS: HYDROcodone/APAP 10/325 MG TABLET PO PRN ×4 (02:10→20:32)
[2020-02-16 03:56] VITALS: BP 97/57
[2020-02-16 07:20] VITALS: BP 93/55
[2020-02-16] MEDS: DOCUSATE 100 MG CAPSULE PO SCH ×2 (08:53→20:32)
[2020-02-16] MEDS: MULTIVITAMIN 1 TABLET PO SCH (08:53)
[2020-02-16] MEDS: THIAMINE 100MG TABLET PO SCH (08:53)
[2020-02-16] MEDS: NICOTINE 14MG/24 HR PATCH.TD24 TD SCH (08:53)
[2020-02-16] MEDS: FOLIC ACID 1 MG TABLET PO SCH ×2 (08:53)
[2020-02-16] MEDS: ASPIRIN 325 MG TABLET PO SCH ×2 (08:53→20:32)
[2020-02-16 13:45] VITALS: BP 93/58
[2020-02-16 18:32] VITALS: BP 109/71
[2020-02-16] MEDS: ATORVASTATIN 40 MG TABLET PO SCH (20:32)
[2020-02-16] MEDS: OLANZAPINE 5 MG TABLET PO SCH (20:32)
[2020-02-16] MEDS: HALOPERIDOL 5 MG/ML IM PRN (21:40)
[2020-02-17 00:23] VITALS: BP 118/71
[2020-02-17] MEDS: HYDROcodone/APAP 10/325 MG TABLET PO PRN ×4 (00:26→19:32)
[2020-02-17] MEDS: FOLIC ACID 1 MG TABLET PO SCH ×2 (09:00→11:13)
[2020-02-17] MEDS: MULTIVITAMIN 1 TABLET PO SCH (11:12)
[2020-02-17] MEDS: DOCUSATE 100 MG CAPSULE PO SCH ×2 (11:12→19:26)
[2020-02-17] MEDS: THIAMINE 100MG TABLET PO SCH (11:12)
[2020-02-17] MEDS: ASPIRIN 325 MG TABLET PO SCH ×2 (11:12→19:26)
[2020-02-17] MEDS: NICOTINE 14MG/24 HR PATCH.TD24 TD SCH (11:17)
[2020-02-17 14:11] VITALS: BP 100/63
[2020-02-17 18:44] VITALS: BP 105/72
[2020-02-17] MEDS: ATORVASTATIN 40 MG TABLET PO SCH (19:26)
[2020-02-17] MEDS: OLANZAPINE 5 MG TABLET PO SCH (19:26)
[2020-02-17] MEDS: HALOPERIDOL 5 MG/ML IM PRN (22:13)
[2020-02-18 00:38] VITALS: BP 106/67
[2020-02-18 08:08] VITALS: BP 86/47
[2020-02-18] MEDS: FOLIC ACID 1 MG TABLET PO SCH ×2 (09:00→14:07)
[2020-02-18 09:11] VITALS: BP 86/50
[2020-02-18 13:31] VITALS: BP 91/53
[2020-02-18] MEDS: ASPIRIN 325 MG TABLET PO SCH ×2 (14:06→19:18)
[2020-02-18] MEDS: NICOTINE 14MG/24 HR PATCH.TD24 TD SCH (14:07)
[2020-02-18] MEDS: HYDROcodone/APAP 10/325 MG TABLET PO PRN ×2 (14:07→19:17)
[2020-02-18] MEDS: DOCUSATE 100 MG CAPSULE PO SCH ×2 (14:07→19:18)
[2020-02-18] MEDS: THIAMINE 100MG TABLET PO SCH (14:07)
[2020-02-18] MEDS: MULTIVITAMIN 1 TABLET PO SCH (14:07)
[2020-02-18 19:12] VITALS: BP 103/67
[2020-02-18] MEDS: OLANZAPINE 5 MG TABLET PO SCH (19:16)
[2020-02-18] MEDS: ATORVASTATIN 40 MG TABLET PO SCH (19:16)
[2020-02-19 00:25] VITALS: BP 99/63
[2020-02-19] MEDS: HYDROcodone/APAP 10/325 MG TABLET PO PRN ×2 (00:26→20:00)
[2020-02-19 07:33] VITALS: BP 93/65
[2020-02-19] MEDS: FOLIC ACID 1 MG TABLET PO SCH ×2 (07:37→09:24)
[2020-02-19] MEDS: ASPIRIN 325 MG TABLET PO SCH ×2 (09:24→19:59)
[2020-02-19] MEDS: MULTIVITAMIN 1 TABLET PO SCH (09:24)
[2020-02-19] MEDS: THIAMINE 100MG TABLET PO SCH (09:24)
[2020-02-19] MEDS: DOCUSATE 100 MG CAPSULE PO SCH ×2 (09:25→20:00)
[2020-02-19] MEDS: NICOTINE 14MG/24 HR PATCH.TD24 TD SCH (09:28)
[2020-02-19 14:10] VITALS: BP 94/66
[2020-02-19 19:54] VITALS: BP 103/68
[2020-02-19] MEDS: ATORVASTATIN 40 MG TABLET PO SCH (19:59)
[2020-02-19] MEDS: OLANZAPINE 5 MG TABLET PO SCH (20:00)
[2020-02-20] MEDS: HYDROcodone/APAP 10/325 MG TABLET PO PRN ×2 (00:06→15:05)
[2020-02-20] MEDS: HALOPERIDOL 5 MG/ML IM PRN ×2 (00:13→23:18)
[2020-02-20 02:54] VITALS: BP 111/72
[2020-02-20 07:31] VITALS: BP 98/66
[2020-02-20] MEDS: MULTIVITAMIN 1 TABLET PO SCH (10:47)
[2020-02-20] MEDS: NICOTINE 14MG/24 HR PATCH.TD24 TD SCH (10:47)
[2020-02-20] MEDS: DOCUSATE 100 MG CAPSULE PO SCH ×2 (10:47→23:04)
[2020-02-20] MEDS: ASPIRIN 325 MG TABLET PO SCH ×2 (10:47→23:04)
[2020-02-20] MEDS: THIAMINE 100MG TABLET PO SCH (10:48)
[2020-02-20] MEDS: FOLIC ACID 1 MG TABLET PO SCH ×2 (10:48→10:59)
[2020-02-20 13:04] VITALS: BP 109/69
[2020-02-20 20:17] VITALS: BP 97/63
[2020-02-20] MEDS: ATORVASTATIN 40 MG TABLET PO SCH (23:04)
[2020-02-20] MEDS: OLANZAPINE 5 MG TABLET PO SCH (23:04)
[2020-02-21] MEDS: HYDROcodone/APAP 10/325 MG TABLET PO PRN ×4 (01:05→20:34)
[2020-02-21 01:59] VITALS: BP 94/58
[2020-02-21] MEDS: ASPIRIN 325 MG TABLET PO SCH ×2 (09:52→20:34)
[2020-02-21] MEDS: FOLIC ACID 1 MG TABLET PO SCH ×2 (09:52)
[2020-02-21] MEDS: THIAMINE 100MG TABLET PO SCH (09:52)
[2020-02-21] MEDS: DOCUSATE 100 MG CAPSULE PO SCH ×2 (09:53→20:34)
[2020-02-21] MEDS: MULTIVITAMIN 1 TABLET PO SCH (09:53)
[2020-02-21] MEDS: NICOTINE 14MG/24 HR PATCH.TD24 TD SCH (10:03)
[2020-02-21 17:33] VITALS: BP 93/65
[2020-02-21] MEDS: OLANZAPINE 5 MG TABLET PO SCH (20:34)
[2020-02-21] MEDS: ATORVASTATIN 40 MG TABLET PO SCH (20:34)
[2020-02-21 20:57] VITALS: BP 106/62
[2020-02-21] MEDS: HALOPERIDOL 5 MG/ML IM PRN (21:38)
[2020-02-22] MEDS: FOLIC ACID 1 MG TABLET PO SCH ×2 (09:00→09:13)
[2020-02-22] MEDS: DOCUSATE 100 MG CAPSULE PO SCH ×2 (09:12→21:00)
[2020-02-22] MEDS: HALOPERIDOL 5 MG/ML IM PRN ×3 (09:12→22:38)
[2020-02-22] MEDS: HYDROcodone/APAP 10/325 MG TABLET PO PRN ×3 (09:12→22:38)
[2020-02-22] MEDS: MULTIVITAMIN 1 TABLET PO SCH (09:13)
[2020-02-22] MEDS: ASPIRIN 325 MG TABLET PO SCH (09:13)
[2020-02-22] MEDS: THIAMINE 100MG TABLET PO SCH (09:13)
[2020-02-22] MEDS: NICOTINE 14MG/24 HR PATCH.TD24 TD SCH (09:13)
[2020-02-22] MEDS: OLANZAPINE 5 MG TABLET PO SCH (21:44)
[2020-02-22] MEDS: ATORVASTATIN 40 MG TABLET PO SCH (21:44)
[2020-02-22 21:56] VITALS: BP 105/58
[2020-02-23] MEDS: HALOPERIDOL 5 MG/ML IM PRN ×2 (11:07→19:54)
[2020-02-23] MEDS: MULTIVITAMIN 1 TABLET PO SCH (11:08)
[2020-02-23] MEDS: HYDROcodone/APAP 10/325 MG TABLET PO PRN ×2 (11:08→19:33)
[2020-02-23] MEDS: FOLIC ACID 1 MG TABLET PO SCH (11:08)
[2020-02-23] MEDS: THIAMINE 100MG TABLET PO SCH (11:08)
[2020-02-23] MEDS: DOCUSATE 100 MG CAPSULE PO SCH ×2 (11:14→19:33)
[2020-02-23] MEDS: NICOTINE 14MG/24 HR PATCH.TD24 TD SCH (11:16)
[2020-02-23] MEDS: ASPIRIN 81 MG TABLET EC PO SCH (11:18)
--- NOTE | 2020-02-23 13:13 | NUR ---
Posted Nursing activity sheet 02/23/2020. Activities are as follows: 1) Up to chair for meals 2)ankle pumps 3)heel slides 4)quad sets 5)Gluteal sets Addendum: 02/23/20 at 1315 by Jared Bahena PTS Amended: Links added.
[2020-02-23 19:30] VITALS: BP 95/60
[2020-02-23] MEDS: OLANZAPINE 5 MG TABLET PO SCH (19:32)
[2020-02-23] MEDS: ATORVASTATIN 40 MG TABLET PO SCH (19:32)
[2020-02-24 00:15] VITALS: BP 94/62
[2020-02-24] MEDS: NICOTINE 14MG/24 HR PATCH.TD24 TD SCH (08:00)
[2020-02-24] MEDS: THIAMINE 100MG TABLET PO SCH (09:00)
[2020-02-24] MEDS: ASPIRIN 81 MG TABLET EC PO SCH (09:00)
[2020-02-24] MEDS: DOCUSATE 100 MG CAPSULE PO SCH ×2 (09:00→20:13)
[2020-02-24] MEDS: FOLIC ACID 1 MG TABLET PO SCH (09:00)
[2020-02-24] MEDS: MULTIVITAMIN 1 TABLET PO SCH (09:00)
[2020-02-24] MEDS: HALOPERIDOL 5 MG/ML IM PRN (10:59)
[2020-02-24 20:00] VITALS: BP 103/65
[2020-02-24] MEDS: ATORVASTATIN 40 MG TABLET PO SCH (20:13)
[2020-02-24] MEDS: OLANZAPINE 5 MG TABLET PO SCH (20:14)
[2020-02-25 01:26] VITALS: BP 107/70
[2020-02-25 05:01] VITALS: BP 108/74
[2020-02-25] MEDS: ASPIRIN 81 MG TABLET EC PO SCH (05:20)
[2020-02-25] MEDS: HYDROcodone/APAP 10/325 MG TABLET PO PRN ×3 (05:21→20:56)
[2020-02-25 07:35] VITALS: BP 112/76
[2020-02-25] MEDS: DOCUSATE 100 MG CAPSULE PO SCH ×2 (11:11→20:56)
[2020-02-25] MEDS: THIAMINE 100MG TABLET PO SCH (11:11)
[2020-02-25] MEDS: NICOTINE 14MG/24 HR PATCH.TD24 TD SCH ×2 (11:11→11:14)
[2020-02-25] MEDS: MULTIVITAMIN 1 TABLET PO SCH (11:12)
[2020-02-25] MEDS: FOLIC ACID 1 MG TABLET PO SCH (11:12)
[2020-02-25 15:14] LABS: BASOPHILS % (AUTO) 1 % (0-1); EOSINOPHILS % (AUTO) 4 % (1-7); LYMPHOCYTES % (AUTO) 22 % (22-44); MEAN CORPUSCULAR HEMOGLOBIN 33.6 pg (27.5-34.5); MEAN CORPUSCULAR HGB CONC 33.5 g/dL (33.2-36.2); MEAN PLATELET VOLUME 8.1 fL (7.4-10.4); MONOCYTES % (AUTO) 9 % (2-9); NEUTROPHILS % (AUTO) 64 % (42-75); PLATELET COUNT 397 x10^3/uL (130-400); RED BLOOD COUNT 3.79 x10^6/uL (4.38-5.82); RED CELL DISTRIBUTION WIDTH 12.8 % (9.4-14.8)
[2020-02-25 15:21] LABS: ANION GAP 7 mmol/L (5-15); CHLORIDE 107 mmol/L (98-107); CREATININE 1.17 mg/dL (0.7-1.3)
[2020-02-25 15:25] LABS: MD NO
[2020-02-25 17:57] VITALS: BP 91/65
[2020-02-25] MEDS: OLANZAPINE 5 MG TABLET PO SCH (20:55)
[2020-02-25] MEDS: ATORVASTATIN 40 MG TABLET PO SCH (20:56)
[2020-02-25] MEDS: HALOPERIDOL 5 MG/ML IM PRN (23:07)
[2020-02-26] MEDS: ASPIRIN 81 MG TABLET EC PO SCH (05:51)
[2020-02-26] MEDS: HYDROcodone/APAP 10/325 MG TABLET PO PRN ×2 (05:51→16:49)
[2020-02-26] MEDS: NICOTINE 14MG/24 HR PATCH.TD24 TD SCH (08:00)
[2020-02-26] MEDS: FOLIC ACID 1 MG TABLET PO SCH (09:00)
[2020-02-26] MEDS: DOCUSATE 100 MG CAPSULE PO SCH ×2 (09:00→20:05)
[2020-02-26] MEDS: THIAMINE 100MG TABLET PO SCH (09:00)
[2020-02-26] MEDS: MULTIVITAMIN 1 TABLET PO SCH (09:00)
[2020-02-26 19:22] VITALS: BP 99/69
[2020-02-26] MEDS: OLANZAPINE 5 MG TABLET PO SCH (20:05)
[2020-02-26] MEDS: HALOPERIDOL 5 MG/ML IM PRN (20:05)
[2020-02-26] MEDS: ATORVASTATIN 40 MG TABLET PO SCH (20:05)
[2020-02-27] MEDS: THIAMINE 100MG TABLET PO SCH (09:54)
[2020-02-27] MEDS: HYDROcodone/APAP 10/325 MG TABLET PO PRN (09:54)
[2020-02-27] MEDS: MULTIVITAMIN 1 TABLET PO SCH (09:54)
[2020-02-27] MEDS: FOLIC ACID 1 MG TABLET PO SCH (09:54)
[2020-02-27] MEDS: ASPIRIN 81 MG TABLET EC PO SCH (09:54)
[2020-02-27] MEDS: DOCUSATE 100 MG CAPSULE PO SCH (09:56)
[2020-02-27] MEDS: HALOPERIDOL 5 MG/ML IM PRN (13:57)
== END 2020-02-27 14:27 | DRG 493 ==
LOC: ED 19:56 → INTOOBSV 21:39 → EDIP 21:39 → 4NE 23:09 → OBSVTOIN 02-08 08:21
PROVIDERS: ADMIT Family Medicine; ATTEND Family Medicine
PROC: 0QSJ04Z Reposition Right Fibula with Internal Fixation Device, Open Approach (ICD-10-PCS; 2020-02-07)
PROC: 0QSG04Z Reposition Right Tibia with Internal Fixation Device, Open Approach (ICD-10-PCS; principal; 2020-02-07 14:30)
DX: S82.841A Displaced bimalleolar fracture of right lower leg, initial encounter for closed fracture (principal); R45.851 Suicidal ideations; S93.04XA Dislocation of right ankle joint, initial encounter; W50.1XXA Accidental kick by another person, initial encounter; Z59.0 Homelessness; Z79.4 Long term (current) use of insulin; Y93.89 Activity, other specified; Y92.89 Other specified places as the place of occurrence of the external cause; F10.20 Alcohol dependence, uncomplicated; Y90.9 Presence of alcohol in blood, level not specified; F15.10 Other stimulant abuse, uncomplicated; F17.210 Nicotine dependence, cigarettes, uncomplicated; F32.9 Major depressive disorder, single episode, unspecified; F41.9 Anxiety disorder, unspecified; I25.2 Old myocardial infarction; I69.328 Other speech and language deficits following cerebral infarction; Z20.828 Contact with and (suspected) exposure to other viral communicable diseases
CPT/HCPCS: 27840; 36415; 73610; 76000; 96374; 96375; 96376; 99285; J7042; S0020; 71045; 80048; 80053; 80307; 82040; 83735; 84100; 85025; 85610; 87635; C1713; G0378; J0690; J1100; J1170; J2175; J2250; J2405; J2704; J3010; J3360; J3411; J3475; J3480; C1769; J0330; J1630; J2270; J2370

== ENCOUNTER 2020-10-24 07:43 | Emergency (ER) | payer MEDICAID ==
[~2020-10-24 07:43] MED LIST changes: -ASPI-515 PO; +ASPI-963 PO; -FOLI-17 PO; +FOLI1TAB32 PO; +OLAN5TAB69 PO; -OLAN5TAB9 PO
== END 2020-10-24 08:06 | disposition left against medical advice (07) ==
LOC: ED 08:00
DX: M79.671 Pain in right foot (principal); Z53.21 Procedure and treatment not carried out due to patient leaving prior to being seen by health care provider